=== PATIENT | male | born 1945 | race Caucasian/White ===

== ENCOUNTER → 2017-02-16 | Outpatient (REF) | payer OTHER ==
[2017-02-16 12:45] LABS: MEAN CORPUSCULAR HGB CONC 33.5 g/dl (32.0-36.5); MEAN CORPUSCULAR VOLUME 101.5 fl (80.0-96.0); RED CELL DISTRIBUTION WIDTH 13.4 % (11.5-14.5); WHITE BLOOD COUNT 7.6 K/mm3 (4.0-10.0)
[2017-02-16 13:12] LABS: ALBUMIN/GLOBULIN RATIO 1.14 (1.00-1.93); ALKALINE PHOSPHATASE 65 U/L (45-117); ALT/SGPT 30 U/L (12-78); ANION GAP 8 MEQ/L (8-16); AST/SGOT 16 U/L (15-37); BILIRUBIN,TOTAL 0.4 MG/DL (0.2-1.0); BLOOD UREA NITROGEN 22 MG/DL (7-18); CARBON DIOXIDE LEVEL 27 MEQ/L (21-32); CHLORIDE LEVEL 106 MEQ/L (98-107); CHOLESTEROL LEVEL 173 MG/DL (<200); GLOMERULAR FILTRATION RATE > 60.0 (>42); GLUCOSE, FASTING 103 MG/DL (83-110); POTASSIUM SERUM 4.8 MEQ/L (3.5-5.1); SODIUM LEVEL 141 MEQ/L (136-145); TOTAL PROTEIN 7.5 GM/DL (6.4-8.2); TRIGLYCERIDES LEVEL 132 MG/DL (<150)
== END ==
LOC: M SFHCADAM 08:59
PROVIDERS: ATTEND Physician Assistant
DX: F17.200 Nicotine dependence, unspecified, uncomplicated (principal); E78.4 Other hyperlipidemia; I10 Essential (primary) hypertension; Z12.5 Encounter for screening for malignant neoplasm of prostate
CPT/HCPCS: 80053; 80061; 85027; G0103

== ENCOUNTER → 2017-02-18 | Outpatient (REF) | payer OTHER | LOC: M SFHCADAM 09:34 | PROVIDERS: ATTEND Physician Assistant | DX: R35.0 Frequency of micturition (principal) | CPT/HCPCS: 81001; 87086; G0463 ==

== ENCOUNTER 2017-07-20 12:52 | Day surgery (SDC) | payer OTHER ==
[2017-07-20] MEDS: NS 1,000 ML IV (13:39)
[2017-07-20] MEDS ORDERED: LIDOCAINE 2% INJ 100 MG/5 ML SDV (FOR ANES.) As Ordered (14:43)
[2017-07-20] MEDS ORDERED: LIDOCAINE 2% MDV 20 ML VIAL As Ordered (14:43)
[2017-07-20] MEDS ORDERED: PROPOFOL 200 MG/20 ML VIAL As Ordered (14:43)
== END 2017-07-20 15:48 | disposition home or self-care (01) ==
LOC: M OPP 12:52
DX: Z12.11 Encounter for screening for malignant neoplasm of colon (principal); K64.0 First degree hemorrhoids; D12.0 Benign neoplasm of cecum; K63.5 Polyp of colon; K57.30 Diverticulosis of large intestine without perforation or abscess without bleeding; Z86.010 Personal history of colon polyps; I10 Essential (primary) hypertension; E78.00 Pure hypercholesterolemia, unspecified; M19.90 Unspecified osteoarthritis, unspecified site; N40.0 Benign prostatic hyperplasia without lower urinary tract symptoms; F17.210 Nicotine dependence, cigarettes, uncomplicated; Z79.82 Long term (current) use of aspirin; Z79.899 Other long term (current) drug therapy; Z86.69 Personal history of other diseases of the nervous system and sense organs
CPT/HCPCS: 45385

== ENCOUNTER → 2017-12-09 | Outpatient (REF) | payer OTHER ==
[2017-12-09 13:27] LABS: PSA SCREENING 3.66 NG/ML (< 4.0)
== END ==
LOC: M SFHCADAM 07:46
DX: R97.20 Elevated prostate specific antigen [PSA] (principal)
CPT/HCPCS: G0103

== ENCOUNTER → 2017-12-13 | Outpatient (REF) | payer OTHER ==
[2017-12-13 13:25] LABS: BASO # 0.1 10^3/uL (0.0-0.2); BASO % 0.6 % (0.0-1.0); EOS # 0.2 10^3/uL (0.0-0.50); EOS % 2.9 % (0.0-3.0); HEMATOCRIT 41.4 % (42.0-52.0); HEMOGLOBIN 13.7 g/dl (13.5-17.5); IMMATURE GRANULOCYTE % 0.4 % (0-3.0); LYMPH # 2.3 10^3/uL (1.5-4.5); MEAN CORPUSCULAR HEMOGLOBIN 32.5 pg (27.0-33.0); MEAN CORPUSCULAR HGB CONC 33.1 g/dl (32.0-36.5); MEAN CORPUSCULAR VOLUME 98.1 fl (80.0-96.0); MONO # 1.1 10^3/uL (0.0-0.8); MONO % 12.5 % (0.0-5.0); NEUTROPHILS # 4.8 10^3/uL (1.8-7.7); NEUTROPHILS % 56.6 % (36.0-66.0); PLATELET COUNT, AUTOMATED 260 10^3/uL (150-450); RED BLOOD COUNT 4.22 10^6/uL (4.30-6.10); RED CELL DISTRIBUTION WIDTH 14.2 % (11.5-14.5); WHITE BLOOD COUNT 8.4 10^3/uL (4.0-10.0)
[2017-12-13 13:42] LABS: ALBUMIN 3.7 GM/DL (3.2-5.2); ALKALINE PHOSPHATASE 74 U/L (45-117); ALT/SGPT 28 U/L (12-78); ANION GAP 8 MEQ/L (8-16); AST/SGOT 15 U/L (7-37); BILIRUBIN,TOTAL 0.4 MG/DL (0.2-1.0); BLOOD UREA NITROGEN 19 MG/DL (7-18); CALCIUM LEVEL 9.1 MG/DL (8.8-10.2); CARBON DIOXIDE LEVEL 26 MEQ/L (21-32); CHLORIDE LEVEL 105 MEQ/L (98-107); CHOLESTEROL LEVEL 173 MG/DL (<200); CREATININE FOR GFR 1.07 MG/DL (0.70-1.30); GLOMERULAR FILTRATION RATE > 60.0 (>42); GLUCOSE, FASTING 106 MG/DL (70-100); HDL CHOLESTEROL 49 MG/DL (>40); LDL CHOLESTEROL 104.8 MG/DL (<100); NON-HDL-C 124 MG/DL; POTASSIUM SERUM 4.9 MEQ/L (3.5-5.1); SODIUM LEVEL 139 MEQ/L (136-145); TOTAL PROTEIN 7.4 GM/DL (6.4-8.2); TRIGLYCERIDES LEVEL 96 MG/DL (<150)
[2017-12-13 13:48] LABS: FOLATE 12.4 NG/ML; VITAMIN B12 LEVEL 319 PG/ML
[2017-12-15 00:06] LABS: FREE KAPPA LIGHT CHAINS SERUM 44.5 mg/L (3.3-19.4); FREE LAMBDA LIGHT CHAINS SERUM 22.9 mg/L (5.7-26.3); KAPPA/LAMBDA RATIO SERUM 1.94 (0.26-1.65)
== END ==
LOC: M SFHCADAM 08:08
DX: D75.89 Other specified diseases of blood and blood-forming organs (principal); R23.8 Other skin changes; E78.4 Other hyperlipidemia
CPT/HCPCS: 82746

== ENCOUNTER → 2017-12-23 | Outpatient (REF) | payer OTHER ==
[2017-12-26 09:14] LABS: TOTAL PROTEIN 7.8 GM/DL (6.4-8.2)
[2017-12-26 11:22] LABS: ALBUMIN 4.32 GM/DL (3.29-5.55); ALBUMIN % 55.4 % (55.8-66.1); ALPHA-1-GLOBULIN % 4.7 % (2.9-4.9); ALPHA-1-GLOBULINS 0.37 GM/DL (0.17-0.41); ALPHA-2-GLOBULINS 0.92 GM/DL (0.42-0.99); ALPHA-2-GLOBULINS % 11.8 % (7.1-11.8); BETA-1-GLOBULINS 0.45 GM/DL (0.28-0.60); BETA-1-GLOBULINS % 5.8 % (4.7-7.2); BETA-2-GLOBULINS 0.44 GM/DL (0.19-0.55); BETA-2-GLOBULINS % 5.6 % (3.2-6.5); GAMMA GLOBULIN % 16.7 % (11.1-18.8)
[2017-12-26 14:11] LABS: FREE LAMBDA LIGHT CHAINS URINE 5.42 mg/L (0.24-6.66)
== END ==
LOC: M SFHCPLAZ 10:41
DX: D75.89 Other specified diseases of blood and blood-forming organs (principal)
CPT/HCPCS: 84165

== ENCOUNTER → 2018-03-14 | Outpatient (REF) | payer OTHER ==
[2018-03-14 11:27] LABS: SLIDE REVIEW Report; SOURCE PERIPHERAL SMEAR
[2018-03-14 12:09] LABS: REASON FOR REVIEW WBC/LEUKEMIA/BLAST
[2018-03-14 12:26] LABS: TOTAL PROTEIN 7.4 GM/DL (6.4-8.2)
[2018-03-15 16:20] LABS: ALBUMIN 4.03 GM/DL (3.29-5.55); ALBUMIN % 54.4 % (55.8-66.1)
[2018-03-15 16:21] LABS: ALPHA-1-GLOBULIN % 4.5 % (2.9-4.9); ALPHA-1-GLOBULINS 0.33 GM/DL (0.17-0.41); ALPHA-2-GLOBULINS 0.94 GM/DL (0.42-0.99); ALPHA-2-GLOBULINS % 12.7 % (7.1-11.8); BETA-1-GLOBULINS 0.41 GM/DL (0.28-0.60); BETA-1-GLOBULINS % 5.6 % (4.7-7.2); BETA-2-GLOBULINS 0.43 GM/DL (0.19-0.55); BETA-2-GLOBULINS % 5.8 % (3.2-6.5); GAMMA GLOBULINS 1.26 GM/DL (0.65-1.58)
[2018-03-16 00:07] LABS: FREE KAPPA LIGHT CHAINS SERUM 39.7 mg/L (3.3-19.4); KAPPA/LAMBDA RATIO SERUM 1.73 (0.26-1.65)
[2018-03-20 14:39] LABS: UPEP INTERPRETATION NO M-SPIKE NOTED; URINE VOLUME RANDOM ML
== END ==
LOC: M LAB REF 11:00
DX: R78.9 Finding of unspecified substance, not normally found in blood (principal)
CPT/HCPCS: 84165

== ENCOUNTER → 2018-03-28 | Outpatient (REF) | payer OTHER ==
[2018-03-28 15:16] LABS: IMMUNOGLOBULIN G 1260 MG/DL (681-1648); IMMUNOGLOBULIN M 52 MG/DL (40-230)
== END ==
LOC: M LAB REF 13:48
DX: D47.2 Monoclonal gammopathy (principal)
CPT/HCPCS: 82784

== ENCOUNTER → 2018-06-19 | Outpatient (CLI) | payer OTHER ==
[~2018-06-19] MED LIST: ASPI1TAB PO; ATEN25TA PO; B-1210009 PO; B-12100T2 PO; BISO5TAB5 PO; PRAV40TA2 PO
--- NOTE | 2018-06-20 03:47 | REP ---
Clinical: Monoclonal gammopathy Technique: Adult bone survey (AP/lateral views of the skull, cervical spine, thoracic spine, and lumbar spine along with AP views of the pelvis, bilateral humerus and femurs). Findings: 16 total views for interpretation demonstrate moderate degenerative changes of the cervical, thoracic, and lumbar spine as well as moderate symmetric degenerative changes involving the bilateral shoulders and hips. No evidence for acute fracture / compression injury to the spine. No obvious osseous abnormality suggesting malignancy or metastatic disease. Specifically, no lytic or blastic lesions and no evidence for cortical irregularity or periosteal reaction. Impression: Moderate degenerative changes. No evidence for osseous malignancy or metastatic disease. Electronically Signed by Shahriar Rahman MD 06/20/2018 03:38 A
== END ==
LOC: M RAD 11:05
PROVIDERS: ATTEND Internal Medicine Hematology & Oncology
DX: D47.2 Monoclonal gammopathy (principal)

== ENCOUNTER → 2018-08-09 | Outpatient (CLI) | payer MEDICARE ==
--- NOTE | 2018-08-09 21:46 | REP ---
Clinical: Lung screening. History smoking. Comparison: None Technique: Axial low-dose noncontrast images from the thoracic inlet to the upper abdomen using lung screening technique. Findings: The lung french demonstrates moderate subpleural bullous changes and mild bronchiectasis suggesting moderate emphysematous disease. No consolidation, significant nodule or mass lesion is appreciated. No pleural effusion/reaction or pneumothorax. Mediastinum demonstrates mild atherosclerotic changes of the coronary arteries without cardiomegaly. Impression: Lung-RADS category I-S. Moderate emphysematous changes. No nodule or suspicious abnormality. Electronically Signed by Shahriar Rahman MD 08/09/2018 09:37 P
== END ==
LOC: M RAD 08:25
PROVIDERS: ATTEND Internal Medicine Hematology & Oncology
DX: Z12.2 Encounter for screening for malignant neoplasm of respiratory organs (principal); Z87.891 Personal history of nicotine dependence; J43.9 Emphysema, unspecified

== ENCOUNTER → 2018-11-30 | Outpatient (REF) | payer MEDICARE ==
[~2018-11-30] MED LIST changes: -ASPI1TAB PO; +ASPI81TA26 PO
[2018-11-30 13:17] LABS: CHOLESTEROL RISK RATIO 4.425 (<5)
[2018-11-30 14:42] LABS: CREATININE, URINE 17.7 MG/DL; MAU/CREAT RATIO 33.8 MCG/MG (0.0-30.0)
== END ==
LOC: M SFHCADAM 10:14
PROVIDERS: ATTEND Physician Assistant
DX: E78.49 Other hyperlipidemia (principal); Z12.5 Encounter for screening for malignant neoplasm of prostate
CPT/HCPCS: 80061; 82043; G0103

== ENCOUNTER → 2018-11-30 | Outpatient (CLI) | payer MEDICARE ==
[2018-11-30 13:08] LABS: BASO # 0.1 10^3/uL (0.0-0.2); EOS # 0.2 10^3/uL (0.0-0.50); EOS % 1.7 % (0.0-3.0); HEMATOCRIT 43.8 % (42.0-52.0); HEMOGLOBIN 14.7 g/dl (13.5-17.5); LYMPH # 2.6 10^3/uL (1.5-4.5); LYMPH % 28.6 % (24.0-44.0); MEAN CORPUSCULAR HEMOGLOBIN 32.7 pg (27.0-33.0); MEAN CORPUSCULAR HGB CONC 33.6 g/dl (32.0-36.5); MEAN CORPUSCULAR VOLUME 97.6 fl (80.0-96.0); MONO # 0.9 10^3/uL (0.0-0.8); MONO % 9.8 % (0.0-5.0); NEUTROPHILS # 5.2 10^3/uL (1.8-7.7); NEUTROPHILS % 58.2 % (36.0-66.0); PLATELET COUNT, AUTOMATED 270 10^3/uL (150-450); RED BLOOD COUNT 4.49 10^6/uL (4.30-6.10)
[2018-11-30 13:26] LABS: ALT/SGPT 24 U/L (12-78); BILIRUBIN,TOTAL 0.4 MG/DL (0.2-1.0); BLOOD UREA NITROGEN 18 MG/DL (7-18); CALCIUM LEVEL 9.4 MG/DL (8.8-10.2); CARBON DIOXIDE LEVEL 28 MEQ/L (21-32); CHLORIDE LEVEL 106 MEQ/L (98-107); CREATININE FOR GFR 1.16 MG/DL (0.70-1.30); GLOMERULAR FILTRATION RATE > 60.0 (>42); GLUCOSE, FASTING 104 MG/DL (70-100); IMMUNOGLOBULIN G 1430 MG/DL (681-1648); IMMUNOGLOBULIN M 60.7 MG/DL (40-230); LDH LACTATE DEHYDROGENASE 181 U/L (87-241); POTASSIUM SERUM 4.5 MEQ/L (3.5-5.1); SODIUM LEVEL 138 MEQ/L (136-145); TOTAL PROTEIN 7.9 GM/DL (6.4-8.2)
[2018-12-05 00:07] LABS: BETA 2 MICROGLOBULIN 1.8 mg/L (0.6-2.4); FREE KAPPA LIGHT CHAINS SERUM 48.1 mg/L (3.3-19.4); FREE LAMBDA LIGHT CHAINS SERUM 21.8 mg/L (5.7-26.3); KAPPA/LAMBDA RATIO SERUM 2.21 (0.26-1.65)
== END ==
LOC: M LABDRWAD 10:17
PROVIDERS: ATTEND Internal Medicine Hematology & Oncology
DX: D47.2 Monoclonal gammopathy (principal); I10 Essential (primary) hypertension; Z12.5 Encounter for screening for malignant neoplasm of prostate
CPT/HCPCS: 36415; 80053; 80061; 82043; 82232; 82784; 83615; 83883; 85025; G0103; G0463

== ENCOUNTER → 2019-04-06 | Outpatient (CLI) | payer MEDICARE ==
[~2019-04-06] MED LIST changes: -BISO5TAB5 PO; +BISO5TAB9 PO
[2019-04-06 17:04] LABS: COLLAGEN ADP 113 SECONDS (56-103); COLLAGEN EPINEPHRINE > 300 SECONDS (74-162)
== END ==
LOC: M LAB 15:24
PROVIDERS: ATTEND Ophthalmology
DX: H02.032 Senile entropion of right lower eyelid (principal); H02.035 Senile entropion of left lower eyelid; H02.832 Dermatochalasis of right lower eyelid; H02.835 Dermatochalasis of left lower eyelid
CPT/HCPCS: 36415; 85576; G0463

== ENCOUNTER → 2019-04-14 | Outpatient (CLI) | payer MEDICARE ==
[2019-04-14 11:19] LABS: COLLAGEN EPINEPHRINE 210 SECONDS (74-162)
[2019-04-14 11:26] LABS: COLLAGEN ADP 94 SECONDS (56-103)
== END ==
LOC: M LAB 10:35
PROVIDERS: ATTEND Ophthalmology
DX: H02.032 Senile entropion of right lower eyelid (principal); H02.035 Senile entropion of left lower eyelid; H02.832 Dermatochalasis of right lower eyelid; H02.835 Dermatochalasis of left lower eyelid

== ENCOUNTER → 2020-08-09 | Outpatient (CLI) | payer MEDICARE ==
[~2020-08-09] MED LIST changes: +BISO5TAB14 PO; -BISO5TAB9 PO
== END ==
LOC: M LABSMTC 09:36
PROVIDERS: ATTEND Anesthesiology
DX: Z01.812 Encounter for preprocedural laboratory examination (principal); Z20.822 Contact with and (suspected) exposure to COVID-19

== ENCOUNTER 2020-08-14 09:11 | Day surgery (SDC) | payer MEDICARE ==
[~2020-08-14] VITALS: Ht 165.1 cm; Wt 72.6 kg
[~2020-08-14 09:11] MED LIST changes: +CEFUROXIME 1MG/0.1ML INTRACAMERAL INJ As Ordered ONE; +DUOVISC (0.50ML VISCOAT/0.55ML PROVISC) OPHTH KIT As Ordered ONE; +MIDAZOLAM INJ 2MG/2ML VIAL (J2250 PER 1MG) As Ordered ONE; +OFLOXACIN 0.3 % (OCUFLOX) OPTH SOL 5ML OD ONE; +PHENYLEPHRINE 2.5% OPHTH SOL 2ML OD ONE; +POVIDONE-IODINE 5% OPHTH PREP SOL 30ML As Ordered ONE; +PROPARACAINE 0.5% OPHTH SOL 15ML OD ONE; +TROPICAMIDE 1% OPHTH SOLN 2ML OD ONE; +fentaNYL 100 MCG/2 ML INJECTION (J3010) As Ordered ONE
--- OUTSIDE RECORDS SUMMARY | 2020-08-14 09:15 | CCD ---
Author Author Daniel Wells MD [facility] Organization Daniel Wells MD [facility] Address [address] [place] [id number] Phone Care Team Providers Care Dinkey Press Operator Name Role Phone Russell MOORE, Daniel IRVIN Unavailable [phone] Ingrid Roblero PP [phone] Reason for Referral No Reason for Referral Recorded Problems Includes: Active, inactive, and resolved Problems All Visits Onset Date - Time Resolved Date - Time Provider Co ndition Status Essential Hypertension 06/02/2020 - 12:00AM Daniel Hitchcock MD, FACS Active Conjunctivitis Chronic Allergic 02/13/2019 - 12:00AM Daniel Wells MD, FACS Active Dermatochalasis Right Upper Eyelid 01/25/2019 - 12:00AM Daniel Wells MD, FACS Active Dermatochalasis Right Lower Eyelid 01/25/2019 - 12:00AM Unknown - Unknown Daniel Wells MD, FACS Resolved Dermatochalasis Right Lower Eyelid 01/25/2019 - 12:00AM 06/02/20 20 - 8:07AM Daniel Wells MD, FACS Resolved Dermatochalasis Left Lower Eyelid 01/25/2019 - 12:00AM Unknown - Unknown Daniel Wells MD, FACS Resolved Dermatochalasis Left Lower Eyelid 01/25/2019 - 12:00AM 0 - 8:07AM Daniel Wells MD, FACS Resolved Dermatochalasis Left Upper Eyelid 01/25/2019 - 12:00AM Daniel Wells MD, FACS Active Retinopathy Hypertensive 01/25/2019 - 12:00AM Daniel Wells MD, FACS Active Ptosis of Eyelid 01/25/2019 - 12:00AM Daniel manzanares MD, FACS Active Tobacco Use 01/25/2019 - 12:00AM Daniel Wells MD, FACS Active Epidermal Inclusion Cyst 01/25/2019 - 12:00AM 06/02/2020 - 8:08A M Daniel Wells MD, FACS Resolved Entropion Senile 01/25/2019 - 12:00AM Unknown - Unknown Daniel Wells MD, FACS Resolved Entropion Senile 01/25/2019 - 12:00AM 06/02/2020 - 8:07AM Daniel Wells MD, FACS Resolved Entropion 01/25/2019 - 12:00AM 06/02/2020 - 8:07AM Daniel Melendrez MD, FACS Resolved Cataract Senile Nuclear 01/25/2019 - 12:00AM Daniel Wells MD, FACS Active Plan of Treatment Referrals To Diagnosis Referral to Dr. Grace Wells MD, FACS Age-r elated nuclear cataract, bilateral Future Appointments Date Time Location Provider Cataract Evaluation 07/03/2020 8:20AM Daniel Wells MD FROYLAN Edwards DO Findings Encounter Date Requested Referred to: Dr. Edwards 1 Year Follow-Up with Daniel Wells MD, FACS 06/02/2020 Ordered intervention and counseling on cessation of to bacco use, 3-10 minutes 1 Week Post OP with Daniel Wells MD, FACS 04/26/2019 Ordered intervention and counseling on cessation of to bacco use, 3-10 minutes 3 - 4 Week Follow-Up with Daniel Wells MD, FACS 02/19/2019 Ordered intervention and counseling on cessation of to bacco use, 3-10 minutes NEW PATIENT WITH REFERRAL with Daniel Wells MD, FACS 01/25/2019 Ordered intervention and counseling on c essation of tobacco use, greater than 10 minutes NEW PATIENT WITH REFERRAL with Daniel Wells MD, FACS 01/25/2019 Assessments Includes: Assessments for all patient encounters Findings Encounter Date Assessment of tobacco use 1 Year Follow-Up with Daniel Boss MD, FACS 06/02/2020 Chronic allergic conjunctivitis 1 Year Follow-Up with Daniel Wells MD, FACS 06/02/2020 Essential hypertension 1 Year Follow-Up with Daniel Bruno MD, FACS 06/02/2020 Hypertensive retinopathy 1 Year Follow-Up with Daniel Melendrez MD, FACS 06/02/2020 Nuclear senile cataract 1 Year Follow-Up with Daniel Mistry MD, FACS 06/02/2020 Senile entropion 1 Week Post OP with Daniel Wells MD, FACS 04/26/2019 Chronic allergic conjunctivitis 3 - 4 Week Follow-Up w ith Daniel Wells MD, FACS 02/19/2019 Dermatochalasis of the left lower eyelid 3 - 4 Week Fo llow-Up with Daniel Wells MD, FACS 02/19/2019 Dermatochalasis of the left upper eyelid 3 - 4 Week Fo llow-Up with Daniel Wells MD, FACS 02/19/2019 Dermatochalasis of the right lower eyelid 3 - 4 Week F ollow-Up with Daniel Wells MD, FACS 02/19/2019 Dermatochalasis of the right upper eyelid 3 - 4 Week F ollow-Up with Daniel Wells MD, FACS 02/19/2019 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 3 - 4 Week Follow- Up with Daniel Wells MD, FACS 02/19/2019 Acute atopic conjunctivitis NEW PATIENT WITH REFERRAL with Daniel Wells MD, FACS 01/25/2019 Chronic allergic conjunctivitis NEW PATIENT WITH REFER RAL with Daniel Bruno MD, FACS 01/25/2019 Dermatochalasis of the left lower eyelid NEW PATIENT W ITH REFERRAL with Daniel Wells MD, FACS 01/25/2019 Dermatochalasis of the left upper eyelid NEW PATIENT W ITH REFERRAL with Daniel Wells MD, FACS 01/25/2019 Dermatochalasis of the right lower eyelid NEW PATIENT WITH REFERRAL with Daniel Wells MD, FACS 01/25/2019 Dermatochalasis of the right upper eyelid NEW PATIENT WITH REFERRAL with Daniel Wells MD, FACS 01/25/2019 Epidermal inclusion cyst NEW PATIENT WITH REFERRAL wi Daniel Wells MD, FACS 01/25/2019 Essential hypertension NEW PATIENT WITH REFERRAL wi Daniel Wells MD, FACS 01/25/2019 Hypertensive retinopathy NEW PATIENT WITH REFERRAL wi Daniel Wells MD, FACS 01/25/2019 Nuclear senile cataract NEW PATIENT WITH REFERRAL [facility] Daniel Wells MD, BRANDEE 01/25/2019 Ptosis of eyelid NEW PATIENT WITH REFERRAL with Daniel Wells MD, FACS 01/25/2019 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 NEW PATIENT WITH REFERRAL with Daniel Wells MD, FACS 01/25/2019 Tobacco use NEW PATIENT WITH REFERRAL with Daniel Wells MD, FACS 01/25/2019 Instructions Instructions not supported for this document typeNo Instructions Recorded Medical Equipment - Implanted Devices Includes: Current and historical DevicesNo Medical Equipment Recorded Medications Includes: Current and historical Medications Current Medications (continue as prescribed) Atenolol 25MG Oral Tablet 01/25/2019 Provider: Diagnosis: Pravastatin Sodium 40MG Oral Tablet 01/25/2019 Prov ider: Diagnosis: Aspirin 81MG Oral Tablet Delayed Release 01/25/2019 Provider: Diagnosis: Vitamin B12 100MCG Oral Tablet 01/25/2019 Provider: Diagnosis: Past Medications on file Ciloxan 0.3% Ophthalmic Ointment 02/19/2019 - 06/02/2020 Pro vider: Daniel Wells MD [facility] Diagnosis: Senile entropion of left lower eyelid Day of surgery, apply thin bead to incis ions and sutures 3 times a day for 1 week Erythromycin 5MG/GM Ophthalmic Ointment 01/25/2019 - 019 Provider: Daniel Wells MD [facility] Diagnosis: Senile entropion of left lower eyelid apply thin bead to both lower eyelids at bedtime Medications Administered Includes: Administered Medications in patient's chartNo Administered Medications Recorded Vital Signs Includes: Vital Signs from 06/16/2019 through 06/16/2020No Vital Signs Recorded For Specified Dates Results Includes: Results from 06/16/2019 through 06/16/2020No Results Recorded For Specified Dates History of Present Illness History of Present Illness not supported for this document typeNo History of Present Illness Recorded Social History Description Last Updated Not using drugs 05/28/2019 Alcohol use moderately 02/19/2019 Current smoker 02/19/2019 Smoking status : Current everyday smoker 02/19/2019 Tobacco use 02/19/2019 Procedures and Surgical History Includes: Procedures from 06/16/2019 through 06/16/2020 Procedures Code Diagnosis Performing Provider Service Location Service Date Intermediate Eye Exam Established Patient [id number] Age-related nuclear cataract, bilateral, Other chronic allergic conjunctivitis, Hypertensive retinopathy, bilateral, Tobacco use Daniel Wells MD, FACS Daniel Wells MD [facility] 06/02/2020 Surgical History Last Updated History of repair of entropion of the ri ght lower eyelid Pentagonal wedge excision and orbiculectomy, blepharoplasty, and reinsertion of lower eyelid retractors by Dr. Wells 05/02/19 05/11/2019 Surgical / procedural history Pentagona l wedge excision and orbiculectomy, blepharoplasty, and reinsertion of lower eyelid retractors left lower eyelid 04/18/2019 by 04/26/2019 History of repair of entropion of the le ft lower eyelid Pentagonal wedge excision and orbiculectomy, blepharoplasty, and reinsertion of lower eyelid retractors by 04/18/2019 04/20/2019 Medical History Includes: Medical History in patient's chart Description Last Updated History of hyperlipidemia 06/16/2020 No recent change in medical history 05/28/2019 Currently wearing eyeglasses 02/19/2019 History of hypertension 02/19/2019 Reported medical history 02/19/2019 Family History Includes: Family History in patient's chart Description Last Updated Family medical history was unknown 05/28/2019 Review of Systems Review of Systems not supported for this document typeNo Review of Systems Recorded Mental Status Mental Status not supported for this document type Description Oriented to time, place, and person Functional Status Functional Status not supported for this document typeNo Functional Status Recorded Physical Exam Physical Exam not supported for this document typeNo Physical Exam Recorded Immunizations Includes: Immunizations in patient's chartNo Immunizations Recorded Allergies Includes: Active, inactive, and resolved AllergiesNo Known Allergies Encounters Includes: Encounters from 06/16/2019 through 06/16/2020 Encounter Provider Location Date Check-In Time Check-Out Time D iagnosis 1 Year Follow-Up Daniel Wells MD, FACS Daniel Chen [facility] 06/02/2020 7:47AM 8:14AM Cataract Senile Nucl ear, Conjunctivitis Chronic Allergic, Retinopathy Hypertensive, Assessment of Tobacco Use, Essential Hypertension Insurance Includes: Active Insurance Policies Plan Name Member ID Group # Subscriber Relationship Effective Da ryan 1 - [employer] (Medicare).-AUTHS NEEDED!!!! [id number] Yon Lowo Self Advance Directives Includes: Current Advance DirectivesNo Advance Directives Recorded Health Concerns Includes: Active Health ConcernsNo Active Health Concerns Recorded Goals Includes: Active GoalsNo Active Goals Recorded Interventions Includes: Interventions for active GoalsNo Interventions Recorded Evaluations & Outcomes Includes: Evaluations & Outcomes for active GoalsNo Outcomes Recorded
--- OUTSIDE RECORDS SUMMARY | 2020-08-14 09:15 | CCD ---
Author Author [facility] Organization [facility] Address Unknown Phone Unavailable Care Team Providers Care Snuff Maker Name Role Phone Ingrid Patel Unavailable PROBLEMS Type Condition ICD9-CM Code [id number] Code Onset Dates Condition S tatus SNOMED Code Notes Problem Prostate cancer screening V76.44 Active 359997 005 Problem Hyperlipidemia 272.4 Active 10164477 Problem Other hyperlipidemia E78.4 Active 42600831 Problem Monoclonal gammopathy D47.2 Active 890035893 Problem HTN (hypertension) 401.9 Active 59716916 Problem Current smoker F17.200 Active 02452755 Problem Macrocytosis without anemia D75.89 Active 2343 98811 Problem Essential (primary) hypertension I10 Active 17624410 ALLERGIES Allergen (clinical drug ingredient) Drug/Non Drug Allergy do cumented on EMR Reaction Allergy Type Onset Date Status lipitor, zocor muscle aching Non Drug Allergy A ctive dander on a deer swelling eyes Non Drug Allergy Active ENCOUNTERS from 1945 to 2020-06-30 Encounter Location Date Provider Diagnosis [address] [phone] Jun, Ingrid Patel IMMUNIZATIONS Vaccine Route Administration Date Status Influenza (18 yrs & older) Flublok IM Intramuscular May 04, 2019 Administered Influenza (18 yrs & older) Flublok IM Intramuscular Jun 14, 2018 Administered Pneumococcal 0.5mL (Prevnar 13) IM Intramuscular Jun 14, 2018 Administered Influenza (6mo & up) Fluzone Unknown Jul 08, 2015 Ref used SOCIAL HISTORY Tobacco Use: Social History Observation Description Date Details (start date - stop date) Current Smoker Sex Assigned At : Social History Observation Description Sex Assigned At Unknown Audit Question Answer Notes Total Score: 1 Interpretation: Alcohol Education Drug and Alcohol Question Answer Notes Total Score: 0 Interpretation: No problems reported Alcohol Screening: Question Answer Notes Did you have a drink containing alcohol in the past year? Ye s Points 1 Interpretation Negative How often did you have six or more drinks on one occas ion in the past year? Never (0 points) How many drinks did you have on a typica l day when you were drinking in the past year? 1 or 2 (0 points) How often did you have a drink containing alcohol in t he past year? Monthly or less (1 point) Tobacco Use: Question Answer Notes Are you a: current smoker Patient counseled on the dangers of tobacco use and urged to quit: 02/11/2016 How many cigarettes a day do you smoke? 6-10 Are you interested in quitting? Not ready to quit Counseled the patient on smoking effects, education provided 02/11/2016 REASON FOR REFERRAL No Information VITAL SIGNS No information MEDICATIONS Medication SIG (Take, Route, Frequency, Duration) Notes Start Da te End Date Status Vitamin B-12 ER 1000 MCG 1 tablet Orally Once a day for 30 day(s ) Dec, Active Pravastatin Sodium 40 MG TAKE ONE TABLET BY MOUTH YAJAIRA RY DAY Orally Daily for 90 days Active Aspir-81 81 MG 1 tablet Orally Once a day Active Atenolol 25 mg TAKE ONE TABLET BY MOUTH EVERY DAY Orally Daily for 90 days Active PROCEDURES No Information RESULTS No Results REASON FOR VISIT refill MEDICAL (GENERAL) HISTORY Type Description Date Medical History Hyperlipidemia Medical History HTN Medical History Tobacco abuse - smokes a pip e - Declines low dose Lung cancer screening Medical History Family history of Prostate C ancer - both sons diagnosed in their 40s, Also his father, brother's Medical History MGUS - Following with Oncology Medical History CT chest - Moderate Emphysematous change s Surgical History Colonoscopy - Tubular adenomatous polyp - Kaylie) 11/2009 Surgical History Tympanoplasy 2012 Surgical History carpel tunnel release 2009 Surgical History knee repair -ilana Surgical History colonoscopy - Tubular adenoma - Dr. Jyothi turner 07/2017 Hospitalization History none Goals Section No Information Health Concerns No Information MEDICAL EQUIPMENT No Information MENTAL STATUS No Information FUNCTIONAL STATUS No Information ASSESSMENTS No Information PLAN OF TREATMENT Medication Medication Name Sig Start Date Stop Date Atenolol 25 mg TAKE ONE TABLET BY MOUTH EVERY DAY Orally Daily for 90 days Pravastatin Sodium 40 MG TAKE ONE TABLET BY MOUTH YAJAIRA DAY Orally Daily for 90 days Next Appt Details Provider Name:Ingrid Patel, 2020-07 07:30:00 AM, [id number], [place], [phone], Insurance Providers Payer Name Payer Address Payer Phone Insured Name Patient Relati onship to Insured Coverage Start Date Coverage End Date [facility] [address] [address] [facility] [phone] ALPHONSE OLIVARES self
--- OUTSIDE RECORDS SUMMARY | 2020-08-14 09:15 | CCD ---
Author Author Daniel Wells MD [facility] Organization Daniel Wells MD [facility] Address [address] [place] [phone] Phone Care Team Providers Care Crm Business Analyst Name Role Phone Russell MOORE, Daniel IRVIN Unavailable [phone] Ingrid Roblero PP [phone] Reason for Referral No Reason for Referral [...] Nuclear senile cataract NEW PATIENT WITH REFERRAL [facility] Daniel Wells MD, BRANDEE 01/25/2019 Ptosis of [...] 02/19/2019 - 06/02/2020 Pro vider: Daniel Wells MD, [facility] Diagnosis: Senile entropion of left lower eyelid Day of surgery, apply thin bead to incis ions and sutures 3 times a day for 1 week Erythromycin 5MG/GM Ophthalmic Ointment 01/25/2019 - 019 Provider: Daniel Wells MD [facility] Diagnosis: Senile entropion of left lower eyelid [...] History Description Last Updated Not using drugs 04/26/2019 Alcohol use moderately 02/19/2019 Current smoker 02/19/2019 Smoking status : Current everyday smoker 02/19/2019 Tobacco use 02/19/2019 Procedures and Surgical History Includes: Procedures from 06/16/2019 through 06/16/2020 Procedures Code Diagnosis Performing Provider Service Location Service Date Intermediate Eye Exam Established Patient [id number] Age-related nuclear cataract, bilateral, Other chronic allergic conjunctivitis, Hypertensive retinopathy, bilateral, Tobacco use Daniel Wells MD, FACS Daniel Wells MD [facility] 06/02/2020 Surgical History Last Updated [...] chart Description Last Updated History of hyperlipidemia 09/25/2019 No recent change in medical history 04/26/2019 Currently wearing eyeglasses 02/19/2019 History of hypertension 02/19/2019 Reported medical history 02/19/2019 Family History Includes: Family History in patient's chart Description Last Updated Family medical history was unknown 04/26/2019 Review of Systems Review of Systems not [...] Follow-Up Daniel Wells MD, FACS Daniel Chen [facility] 06/02/2020 7:47AM 8:14AM Cataract Senile Nucl ear, Conjunctivitis Chronic Allergic, Retinopathy Hypertensive, Assessment of Tobacco Use, Essential Hypertension Insurance Includes: Active Insurance Policies Plan Name Member ID Group # Subscriber Relationship Effective Da ryan 1 - [employer] (Medicare).-AUTHS NEEDED!!!! [id number] Yon Lowo Self Advance Directives Includes: Current Advance DirectivesNo Advance Directives Recorded Health Concerns Includes: Active Health ConcernsNo Active Health Concerns Recorded Goals Includes: Active GoalsNo Active Goals Recorded Interventions Includes: Interventions for active GoalsNo Interventions Recorded Evaluations & Outcomes Includes: Evaluations & Outcomes for active GoalsNo Outcomes Recorded
--- OUTSIDE RECORDS SUMMARY | 2020-08-14 09:15 | CCD ---
Author Author [facility] Organization [facility] Address Unknown Phone Unavailable Care Team Providers Care Metal Hanger Name Role Phone Ingrid Patel Unavailable PROBLEMS Type Condition ICD9-CM Code RBL06-AD Code Onset Dates Condition S tatus W/U Status Risk SNOMED Code Notes Problem Prostate cancer screening V76.44 Active confirmed 613076803 Problem Hyperlipidemia 272.4 Active confirmed 08403 004 Problem Other hyperlipidemia E78.4 Active confirmed 86415034 Problem Monoclonal gammopathy D47.2 Active confirmed 202064469 Problem HTN (hypertension) 401.9 Active confirmed 3 1222477 Problem Current smoker F17.200 Active confirmed 7717 6002 Problem Macrocytosis without anemia D75.89 Active confirmed 454564892 Problem Essential (primary) hypertension I10 Active conf irmed 88184871 ALLERGIES Allergen (clinical drug ingredient) Drug/Non Drug Allergy do cumented on EMR Reaction Allergy Type Onset Date Status lipitor, zocor muscle aching Non Drug Allergy A ctive dander on a deer swelling eyes Non Drug Allergy Active ENCOUNTERS from 1945 to 2020-08-07 Encounter Location Date Provider Diagnosis [facility] [address] [place] [address] Jul, Miguel Patel Annual physical exam Z00.00 ; Encounter for immunization Z23 ; Essential (primary) hypertension I10 ; Current smoker F17.200 ; Monoclonal gammopathy D47.2 and Need for Streptococcus pneumoniae vaccination Z23 IMMUNIZATIONS Vaccine Route Administration Date Status Influenza (18 yrs & older) Flublok IM Intramuscular Jul 22, 2020 Administered Influenza (18 yrs & older) Flublok IM Intramuscular May 04, 2019 Administered Influenza (18 yrs & older) Flublok IM Intramuscular Jun 14, 2018 Administered Pneumococcal Adult 0.5mL (Pneumovax 23) IM Intramuscular Jul 22, 2020 Administered Pneumococcal 0.5mL (Prevnar 13) IM Intramuscular [...] of tobacco use and urged to quit: 07/22/2020 How many cigarettes a day do you smoke? 6-10 Are you interested in quitting? Not ready to quit Counseled the patient on smoking effects, education provided 07/22/2020 REASON FOR REFERRAL No Information VITAL SIGNS Weight 166.4 lbs Jul, Height 66 in Jul, BMI 26.85 kg/m2 Jul, Heart Rate 75 /min Jul, Respiratory Rate 18 /min Jul, Temperature 98.1 degrees Fahrenheit Jul, Oximetry 100 Jul, Blood pressure systolic 124 mm Hg Jul, Blood pressure diastolic 72 mm Hg Jul, MEDICATIONS Medication SIG (Take, Route, Frequency, Duration) Notes Start Da te End Date Status Pravastatin Sodium 40 MG TAKE ONE TABLET BY MOUTH YAJAIRA RY DAY Orally Daily for 90 days Active Vitamin B-12 ER 1000 MCG 1 tablet Orally Once a day for 30 day(s ) Dec, Not-Taking Atenolol 25 mg TAKE ONE TABLET BY MOUTH EVERY DAY Orally Daily for 90 days Active Aspir-81 81 MG 1 tablet Orally Once a day Active PROCEDURES from 1943 to 2020-08-07 Procedure Date Ordered Result Body Site Immunization: Flublok Quadrivalent (18 years & older) 0.5mL IM (Influenza) 2020-07-22 N/A Immunization: Pneumovax 23 0.5mL SQ (Pneumococcal) 2020-07-22 N/A RESULTS No Results REASON FOR VISIT overdue annual MEDICAL (GENERAL) HISTORY Type Description Date Medical History Hyperlipidemia Medical History HTN Medical History Tobacco abuse - smokes a pip e - Declines low dose Lung cancer screening Medical History Family history of Prostate C ancer - both sons diagnosed in their 40s, Also his father, brother's Medical History MGUS - Following with Oncology Medical History CT chest - Moderate Emphysematous change s Medical History PSA elevated - Declines Further testing or Urology Referral Medical History Left testicular hydrocele - Evaluated by Urology Surgical History Colonoscopy - Tubular adenomatous polyp - Kaylie) 11/2009 Surgical History Tympanoplasy 2012 Surgical History carpel tunnel release 2009 Surgical History knee repair -ilana Surgical History colonoscopy - Tubular adenoma - Dr. Jyothi turner 07/2017 Surgical History eyes lift 2019 Hospitalization History none Goals Section No Information Health Concerns No Information MEDICAL EQUIPMENT No Information MENTAL STATUS No Information FUNCTIONAL STATUS No Information ASSESSMENTS Encounter Date Diagnosis Assessment Notes Treatment Notes Treatm ent Clinical Notes Jul, Annual physical exam (ICD-10 - Z00.00) Jul, Encounter for immunization (ICD-10 - Z23) Jul, Essential (primary) hypertension (ICD-10 - I10) Jul, Current smoker (ICD-10 - F17.200) Jul, Monoclonal gammopathy (ICD-10 - D47.2) Jul, Need for Streptococcus pneumoniae vaccination (I CD-10 - Z23) PLAN OF TREATMENT Future Test Test Name Order Date CBC with Differential 20200722 Comprehensive Metabolic Profile (CMP) 20200722 Next Appt Details labs today, 1 year for MAW Reason: Insurance Providers Payer Name Payer Address Payer Phone Insured Name Patient Relati onship to Insured Coverage Start Date Coverage End Date [employer] [address] [address] [facility] [address] [phone] ALPHONSE OLIVARES self
--- OUTSIDE RECORDS SUMMARY | 2020-08-14 09:15 | CCD ---
Author Author [facility] Organization [facility] Address Unknown Phone Unavailable Care Team Providers Care Die Hardener Name Role Phone Socorro Bruno, Ayush Sanchez MD, FACS Unavailable Unavailable Quintanilla Bruno, Ayush Sanchez MD, FACS Unavailable Unavailable Quintanilla Bruno, Ayush Sanchez MD, FACS Unavailable Unavailable Quintanilla Bruno, Ayush Sanchez MD, FACS Unavailable Unavailable Quintanilla Bruno, Ayush Sanchez MD, FACS Unavailable Unavailable Quintanilla Bruno, Ayush Sanchez MD, FACS Unavailable Unavailable Quintanilla Bruno, Ayush Sanchez MD, FACS Unavailable Unavailable Quintanilla Bruno, Ayush Sanchez MD, FACS Unavailable Unavailable Quintanilla Bruno, Ayush Sanchez MD, FACS Unavailable Unavailable Quintanilla Bruno, Ayush Sanchez MD, FACS Unavailable Unavailable Quintanilla Bruno, Ayush Sanchez MD, FACS Unavailable Unavailable Quintanilla Bruno, Ayush Sanchez MD, FACS Unavailable Unavailable Quintanilla Bruno, Ayush Sanchez MD, FACS Unavailable Unavailable Quintanilla Bruno, Ayush Sanchez MD, FACS Unavailable Unavailable Quintanilla Bruno, Ayush Sanchez MD, FACS Unavailable Unavailable Quintanilla Bruno, Ayush Sanchez MD, FACS Unavailable Unavailable Quintanilla Bruno, Ayush Sanchez MD, FACS Unavailable Unavailable Quintanilla Bruno, Ayush Sanchez MD, FACS Unavailable Unavailable Quintanilla Bruno, Ayush Sanchez MD, FACS Unavailable Unavailable Quintanilla Bruno, Ayush Sanchez MD, FACS Unavailable Unavailable Quintanilla Bruno, Ayush Sanchez MD, FACS Unavailable Unavailable Quintanilla Bruno, Ayush Sanchez MD, FACS Unavailable Unavailable Quintanilla Bruno, Ayush Sanchez MD, FACS Unavailable Unavailable Quintanilla Bruno, Ayush Sanchez MD, FACS Unavailable Unavailable Quintanilla Bruno, Ayush Sanchez MD, FACS Unavailable Unavailable Quintanilla Bruno, Ayush Sanchez MD, FACS Unavailable Unavailable Quintanilla Bruno, Ayush Sanchez MD, FACS Unavailable Unavailable Quintanilla Bruno, Ayush Sanchez MD, FACS Unavailable Unavailable Quintanilla Bruno, Ayush Sanchez MD, FACS Unavailable Unavailable Socorro Bruno, Ayush Sanchez MD, FACS Unavailable Unavailable Socorro Bruno, Ayush Sanchez MD, FACS Unavailable Unavailable Socorro Bruno, Ayush Sanchez MD, FACS Unavailable Unavailable Socorro Bruno, Ayush Sanchez MD, FACS Unavailable Unavailable Socorro Bruno, Ayush Sanchez MD, FACS Unavailable Unavailable Re-disclosure Warning The records that you are about to access may contain information from federally-assisted alcohol or drug abuse programs. If such information is present, then the following federally mandated warning applies: This information has been disclosed to you from records protected by federal confidentiality rules (42 CFR part 2). The federal rules prohibit you from making any further disclosure of this information unless further disclosure is expressly permitted by the written consent of the person to whom it pertains or as otherwise permitted by 42 CFR part 2. A general authorization for the release of medical or other information is NOT sufficient for this purpose. The Federal rules restrict any use of the information to criminally investigate or prosecute any alcohol or drug abuse patient.The records that you are about to access may contain highly sensitive health information, the redisclosure of which is protected by Article 27-F of the [facility] Public Health law. If you continue you may have access to information: Regarding HIV / AIDS; Provided by facilities licensed or operated by the [facility] Office of Mental Health; or Provided by the [facility] Office for People With Developmental Disabilities. If such information is present, then the following [facility] mandated warning applies: This information has been disclosed to you from confidential records which are protected by state law. State law prohibits you from making any further disclosure of this information without the specific written consent of the person to whom it pertains, or as otherwise permitted by law. Any unauthorized further disclosure in violation of state law may result in a fine or chcf sentence or both. A general authorization for the release of medical or other information is NOT sufficient authorization for further disc losure. Allergies and Adverse Reactions Type Description Substance Reaction Status Data Source(s ) Allergy to substance No Known Allergies No known allergies (situation ) LUCAS (Daniel Bruno MD [facility]) Allergy to substance No Known Allergies No known allergies (situation ) LUCAS (Daniel Bruno MD [facility]) Allergy to substance No Known Allergies No known allergies (situation ) LUCAS (Daniel Bruno MD [facility]) Allergy to substance No Known Allergies No known allergies (situation ) LUCAS (Daniel Bruno MD [facility]) Allergy to substance No Known Allergies No known allergies (situation ) MARIVEL (Daniel Bruno MD [facility]) Family History Family Member Name Family Member Gender Family Member Status Date o f Status Description Data Source(s) Unknown Unknown Encounters Encounter Providers Location Date Indications Data Source(s ) Office Visit, Est Pt., Level 3 FC [address] [place] [address] 07/22/2020 12:00:00 AM EST eCW1 ([facility]) Unknown [address] [facility], [facility] [address] 06/15/2020 12:00:00 AM EST eCW1 ([facility]) Outpatient<td ID="encounterTypeDescripti onID0">1 Year Follow-Up</td><td>Daniel Wells MD, FACS</td><td>Daniel Wells MD [facility]</td><td>06/02/2020</td><td>7:47AM</td><td>8:14AM</td><td><content ID="encounterDiagnosisID0-0">Cataract Senile Nuclear</content>, <content ID="encounterDiagnosisID0-1">Conjunctivitis Chronic Allergic</content>, <content ID="encounterDiagnosisID0-2">Retinopathy Hypertensive</content>, <content ID="encounterDiagnosisID0-3">Assessment of Tobacco Use</content>, <content ID="encounterDiagnosisID0-4">Essential Hypertension</content></td> Attender: Daniel Bruno MD, FACS Daniel Wells MD [facility] 06/02/2020 07:47:00 AM EST - 06/02/2020 08:14:00 AM EST Essential HypertensionEssential Hyperten sionEssential HypertensionConjunctivitis Chronic AllergicConjunctivitis Chronic AllergicConjunctivitis Chronic AllergicAssessment of Tobacco UseRetinopathy Hyp ertensiveCataract Senile NuclearAssessment of Tobacco UseRetinopathy HypertensiveCataract Senile NuclearAssessment of Tobacco UseRetinopathy HypertensiveCataract Senile Nuclear MARIVEL (Daniel Bruno MD [facility]) Essential Hypertension Essential Hypertension Essential Hypertension Conjunctivitis Chronic Allergic Conjunctivitis Chronic Allergic Conjunctivitis Chronic Allergic Assessment of Tobacco Use Retinopathy Hypertensive Cataract Senile Nuclear Assessment of Tobacco Use Retinopathy Hypertensive Cataract Senile Nuclear Assessment of Tobacco Use Retinopathy Hypertensive Cataract Senile Nuclear [address] [address] 06/19/2019 12:00:00 AM EST eCW1 ([facility]) Outpatient Attender: Daniel Bruno MD, FACS 04/18/2019 11:53:00 AM EDT - 04/18/2019 02:55:00 PM [facility] Patient discharged. Immunizations Vaccine Date Status Description Data Source(s) pneumococcal polysaccharide PPV23 07/22/2020 08:52:00 AM EST comple marek eCW1 ([facility]) influenza, recombinant, quadrIvalent,injectable, prese rvative free 07/22/2020 07:46:00 AM EST completed eCW1 ([facility]) Medications Medication Brand Name Start Date Product Form Dose Route Admi nistrative Instructions Pharmacy Instructions Status Indications Reaction Description Data Source(s) 1 % 08/09/2020 12:00:00 AM EST drops,suspension 2 DAY OF SURGERY, REMOVE PATCH, INSTILL ONE DROP IN THE RIGHT EYE TWO TIMES A DAY DAY OF SURGERY, REMOVE PATCH, INSTILL ONE DROP IN THE RIGHT EYE TWO TIMES A DAY SOLD: 08/09/2020 [facility] 0.075 % 08/06/2020 12:00:00 AM EST drops 5 STARTING 3 DAYS BEFORE SURGERY, INSTILL ONE DROP IN THE RIGHT EYE TWO TIMES A DAY STARTING 3 DAYS BEFORE SURGERY, INSTILL ONE DROP IN THE RIGHT EYE TWO TIMES A DAY SOLD: 08/09/2020 [facility] moxifloxacin 5 MG/ML Ophthalmic Solution 0.5 % MOXIFLOXACIN HCL 08/05/2020 12:00:00 AM EST drops 3 STARTING 3 DAYS BEFORE SURGERY, INSTILL ONE DROP IN THE RIGHT EYE FOUR TIMES A DAY STARTING 3 DAYS BEFORE SURGERY, INSTILL ONE DROP IN THE RIGHT EYE FOUR TIMES A DAY SOLD: 08/09/2020 [facility] Atenolol 25 MG Oral Tablet ATENOLOL 06/16/2020 12:00:00 AM EST tablet 90 TAKE ONE TABLET BY MOUTH EVERY DAY TAKE ONE TABLET BY MOUTH EVERY DAY SOLD: 06/20/2020 [facility] 40 mg 06/16/2020 12:00:00 AM EST tablet 90 TAKE ONE TABLET BY MOUTH EVERY DAY TAKE ONE TABLET BY MOUTH EVERY DAY SOLD: 06/20/2020 [facility] 25 mg 12/04/2019 12:00:00 AM EDT tablet 90 TAKE ONE TABLET BY MOUTH EVERY DAY TAKE ONE TABLET BY MOUTH EVERY DAY SOLD: 03/14/2020 [facility] 40 mg 12/04/2019 12:00:00 AM EDT tablet 90 TAKE ONE TABLET BY MOUTH EVERY DAY TAKE ONE TABLET BY MOUTH EVERY DAY SOLD: 12/14/2019 [facility] 40 mg 12/04/2019 12:00:00 AM EDT tablet 90 TAKE ONE TABLET BY MOUTH EVERY DAY TAKE ONE TABLET BY MOUTH EVERY DAY SOLD: 03/14/2020 [facility] 25 mg 12/04/2019 12:00:00 AM EDT tablet 90 TAKE ONE TABLET BY MOUTH EVERY DAY TAKE ONE TABLET BY MOUTH EVERY DAY SOLD: 12/14/2019 [facility] 40 mg 06/06/2019 12:00:00 AM EST tablet 90 TAKE ONE TABLET BY MOUTH EVERY DAY TAKE ONE TABLET BY MOUTH EVERY DAY SOLD: 09/08/2019 [facility] 25 mg 06/06/2019 12:00:00 AM EST tablet 90 TAKE ONE TABLET BY MOUTH EVERY DAY TAKE ONE TABLET BY MOUTH EVERY DAY SOLD: 09/08/2019 [facility] Ciprofloxacin 0.003 MG/MG Ophthalmic Oin tment [Ciloxan] Ciloxan 0.3% Ophthalmic Ointment Ciloxan 0.3% Ophthalmic Ointment 02/19/2019 12:00:00 AM EDT aborted ciprofloxacin 0.003 MG/MG Ophtha lmic Ointment [Ciloxan] MARIVEL (Daniel Bruno MD [facility]) Insurance Providers Payer name Policy type / Coverage type Policy ID Covered republican ID Covered republican's relationship to ponce Policy Ponce Plan Information WELLCARE [id number] SP [id number] WELLCARE [id number] SP [id number] WELLCARE [id number] SP [id number] [facility] [id number] S [id number] [facility] ( O) [id number] [employer]SI-[employer] Maintenance Organization ( O) [id number] [employer] [id number] SP [id number] WELLCARE [id number] SP [id number] [employer] [id number] SP [id number] ANSI-Medicare Part B [id number] [employer]IONS [id number] SP [id number] Today's Option Medicare Commercial Self [employer] OPTION -O/P [id number] [employer] [id number] Problems, Conditions, and Diagnoses Code Display Name Description Problem Type Effective Dates Data Source(s) 401.9 Essential Hypertension Essential Hypertension Problem 06/02/2020 12:00:00 AM EST MARIVEL (Daniel Bruno MD [facility]) 401.9 Essential Hypertension Essential Hypertension Problem 06/02/2020 12:00:00 AM EST MARIVEL (Daniel Bruno MD [facility]) 401.9 Essential Hypertension Essential Hypertension Problem 06/02/2020 12:00:00 AM EST MARIVEL (Daniel Bruno MD [facility]) 372.05 Conjunctivitis Acute Atopic Conjunctivitis Acute Atopi c Problem 09/18/2019 12:00:00 AM EDT MARIVEL (Daniel Bruno MD [facility]) 372.05 Conjunctivitis Acute Atopic Conjunctivitis Acute Atopi c Problem 09/18/2019 12:00:00 AM EDT MARIVEL (Daniel Bruno MD [facility]) 706.2 Epidermal Inclusion Cyst Epidermal Inclusion Cyst Prob coleman 01/25/2019 12:00:00 AM EDT - 06/02/2020 12:00:00 AM EST MARIVEL (Daniel Bruno MD [facility]) [id number] Dermatochalasis Left Lower Eyelid Dermatochalasi s Left Lower Eyelid Problem 01/25/2019 12:00:00 AM EDT - 06/02/2020 12:00:00 AM ES T MARIVEL (Daniel Bruno MD [facility]) [id number] Dermatochalasis Right Lower Eyelid Dermatochalas is Right Lower Eyelid Problem 01/25/2019 12:00:00 AM EDT - 06/02/2020 12:00:00 AM ES T MARIVEL (Daniel Bruno MD [facility]) 374.01 Entropion Entropion Problem 01/25/2019 12:0 0:00 AM EDT - 06/02/2020 12:00:00 AM EST MARIVEL (Daniel Bruno MD [facility]) 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 019 12:00:00 AM EDT - 06/02/2020 12:00:00 AM EST MARIVEL (Daniel Bruno MD [facility]) 706.2 Epidermal Inclusion Cyst Epidermal Inclusion Cyst Prob coleman 01/25/2019 12:00:00 AM EDT - 06/02/2020 12:00:00 AM EST MARIVEL (Daniel Bruno MD [facility]) [id number] Dermatochalasis Left Lower Eyelid Dermatochalasi s Left Lower Eyelid Problem 01/25/2019 12:00:00 AM EDT - 06/02/2020 12:00:00 AM ES T MARIVEL (Daniel Bruno MD [facility]) [id number] Dermatochalasis Right Lower Eyelid Dermatochalas is Right Lower Eyelid Problem 01/25/2019 12:00:00 AM EDT - 06/02/2020 12:00:00 AM ES T MARIVEL (Daniel Bruno MD [facility]) 374.01 Entropion Entropion Problem 01/25/2019 12:0 0:00 AM EDT - 06/02/2020 12:00:00 AM EST MARIVEL (Daniel Bruno MD [facility]) 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 019 12:00:00 AM EDT - 06/02/2020 12:00:00 AM EST MARIVEL (Daniel Bruno MD [facility]) 706.2 Epidermal Inclusion Cyst Epidermal Inclusion Cyst Prob coleman 01/25/2019 12:00:00 AM EDT - 06/02/2020 12:00:00 AM EST MARIVEL (Daniel Bruno MD [facility]) [id number] Dermatochalasis Left Lower Eyelid Dermatochalasi s Left Lower Eyelid Problem 01/25/2019 12:00:00 AM EDT - 06/02/2020 12:00:00 AM ES T MARIVEL (Daniel Bruno MD [facility]) [id number] Dermatochalasis Right Lower Eyelid Dermatochalas is Right Lower Eyelid Problem 01/25/2019 12:00:00 AM EDT - 06/02/2020 12:00:00 AM ES T MARIVEL (Daniel Bruno MD [facility]) 374.01 Entropion Entropion Problem 01/25/2019 12:0 0:00 AM EDT - 06/02/2020 12:00:00 AM EST MARIVEL (Daniel Bruno MD [facility]) 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 019 12:00:00 AM EDT - 06/02/2020 12:00:00 AM EST MARIVEL (Daniel Bruno MD [facility]) Surgeries/Procedures Procedure Description Date Indications Data Source(s) HEPATITIS A VACCINE PEDIATRIC 3 DOSE SCHEDULE IM 07/22 12:00:00 AM EST eCW1 ([facility]) Immunization: Flublok Quadrivalent (18 years & older) 0.5mL IM (Influenza) 07/22/2020 12:00:00 AM EST eCW1 ([facility]) Correction of entropion of lower eyelid (procedure) Hi story of repair of entropion of the left lower eyelid Pentagonal wedge excision and orbiculectomy, blepharoplasty, and reinsertion of lower eyelid retractors by Dr. Wells 04/18/2019 06/02/2020 12:00:00 AM EST MARIVEL (Kris norma Bruno MD [facility]) Intermediate Eye Exam Established Patient Intermediate Eye Exam Established Patient 06/02/2020 12:00:00 AM EST MARIVEL (Kris Bruno MD [facility]) History of hyperlipidemia History of hyperlipidemia 09/25/2019 1 2:00:00 AM EDT MARIVEL (Daniel Bruno MD [facility]) History of hyperlipidemia History of hyperlipidemia 09/18/2019 1 2:00:00 AM EDT MARIVEL (Daniel Bruno MD [facility]) Results ID Date Data Source [id number] 08/09/2020 11:00:00 AM EST [facility] Name Value Range Interpretation Code Description Data Nidhi rce(s) Supporting Document(s) SARS coronavirus 2 RNA Not Detected [facility] [place] This lab was ordered by [facility] and reported by [facility]. Procedure Social History Code Duration Value Status Description Data Source(s ) Smoking 07/22/2020 12:00:00 AM EST Current Smoker completed Curre nt Smoker eCW1 ([facility]) Smoking 09/25/2019 08:25:24 AM EDT Smokes tobacco daily (findi ng) completed Smokes tobacco daily (finding) MARIVEL (Daniel Bruno MD [facility]) Smoking 09/18/2019 04:06:34 PM EDT Smokes tobacco daily (findi ng) completed Smokes tobacco daily (finding) MARIVEL (Daniel Bruno MD [facility]) Vital Signs ID Date Data Source UNK Name Value Range Interpretation Code Description Data Source(s) Diastolic blood pressure 72 mm[Hg] 72 mm[Hg] eCW1 ([facility]) Systolic blood pressure 124 mm[Hg] 124 mm[Hg] e CW1 ([facility]) Body temperature 98.1 [degF] 98.1 [degF] eCW1 ( [facility]) Respiratory rate 18 /min 18 /min eCW1 ([facility]) Heart rate 75 /min 75 /min eCW1 ([facility]) Body mass index (BMI) [Ratio] 26.85 kg/m2 26.85 kg/m2 eCW1 ([facility]) Body height 66 [in_i] 66 [in_i] eCW1 ([facility]) Body weight 166.4 [lb_av] 166.4 [lb_av] eCW1 ([facility]) Patient Treatment Plan of Care Planned Activity Planned Date Details Description Data Source (s) Ciprofloxacin 0.003 MG/MG Ophthalmic Ointment [Ciloxan ] 02/19/2019 12:00:00 AM EDT MARIVEL (Daniel Bruno MD [facility])
--- OUTSIDE RECORDS SUMMARY | 2020-08-14 09:15 | CCD ---
Author Author Daniel Wells MD [facility] Organization Daniel Wells MD [facility] Address [address] [place] [id number] Phone Care Team Providers Care Manager Audit Name Role Phone Russell MOORE, Daniel IRVIN Unavailable [phone] Ingrid Roblero PP [phone] Reason for Referral No Reason for Referral [...] Nuclear senile cataract [facility] Daniel Wells MD, BRANDEE 01/25/2019 Ptosis [...] - 06/02/2020 Pro vider: Daniel Wells MD, [facility] Diagnosis: Senile entropion of left lower eyelid Day of surgery, apply thin bead to incis ions and sutures 3 times a day for 1 week Erythromycin 5MG/GM Ophthalmic Ointment 01/25/2019 - 019 Provider: Daniel Wells MD [facility] Diagnosis: Senile entropion of left lower eyelid [...] History Description Last Updated Not using drugs 06/02/2020 Alcohol use moderately 02/19/2019 Current smoker 02/19/2019 Smoking status : Current everyday smoker 02/19/2019 Tobacco use 02/19/2019 Procedures and Surgical History Includes: Procedures from 06/16/2019 through 06/16/2020 Procedures Code Diagnosis Performing Provider Service Location Service Date Intermediate Eye Exam Established Patient [id number] Age-related nuclear cataract, bilateral, Other chronic allergic conjunctivitis, Hypertensive retinopathy, bilateral, Tobacco use Daniel Wells MD, FACS Daniel Wells MD [facility] 06/02/2020 Surgical History Last Updated History of repair of entropion of the le ft lower eyelid Pentagonal wedge excision and orbiculectomy, blepharoplasty, and reinsertion of lower eyelid retractors by Dr. Wells 04/18/2019 06/02/2020 History of repair of entropion of the ri ght lower eyelid Pentagonal wedge excision and orbiculectomy, blepharoplasty, and reinsertion of lower eyelid retractors by Dr. Wells 05/02/19 05/11/2019 Surgical / procedural history Pentagona l wedge excision and orbiculectomy, blepharoplasty, and reinsertion of lower eyelid retractors left lower eyelid 04/18/2019 by 04/26/2019 Medical History Includes: Medical History in patient's chart Description Last Updated History of hyperlipidemia 06/16/2020 No recent change in medical history 05/28/2019 Currently wearing eyeglasses 02/19/2019 History of hypertension 02/19/2019 Reported medical history 02/19/2019 Family History Includes: Family History in patient's chart Description Last Updated Family medical history was unknown 06/02/2020 Review of Systems Review of Systems not [...] Follow-Up Daniel Wells MD, FACS Daniel Chen [facility] 06/02/2020 7:47AM 8:14AM Cataract Senile Nucl ear, Conjunctivitis Chronic Allergic, Retinopathy Hypertensive, Assessment of Tobacco Use, Essential Hypertension Insurance Includes: Active Insurance Policies Plan Name Member ID Group # Subscriber Relationship Effective Da ryan 1 - [employer] (Medicare).-AUTHS NEEDED!!!! [id number] Yon Aguilareo Self Advance Directives Includes: Current Advance DirectivesNo Advance Directives Recorded Health Concerns Includes: Active Health ConcernsNo Active Health Concerns Recorded Goals Includes: Active GoalsNo Active Goals Recorded Interventions Includes: Interventions for active GoalsNo Interventions Recorded Evaluations & Outcomes Includes: Evaluations & Outcomes for active GoalsNo Outcomes Recorded
[2020-08-14] MEDS ORDERED: BSS IRR 500ML/OMIDRIA 4ML IRR BAG (OR ONLY) As Ordered ONE (09:57)
[2020-08-14 11:15] VITALS: BP 170/74
--- NOTE | 2020-08-15 09:31 | RO ---
OPERATIVE NOTE DATE OF OPERATION: 08/14/2020 PREOPERATIVE DIAGNOSIS: 1. Visually significant nuclear sclerotic cataract, right eye. POSTOPERATIVE DIAGNOSIS: 1. Visually significant nuclear sclerotic cataract, right eye. PROCEDURE: 1. Cataract extraction with use of phacoemulsification, and placement of intraocular lens, AU00T0, 20.5 D, right eye. SURGEON: Vishnu Edwards DO ANESTHESIA: Local (Omidria with MAC) COMPLICATIONS: None POSTOPERATIVE CONDITION: Stable INDICATIONS FOR SURGERY: 1. Blurred vision affecting patient's activities of daily living. DESCRIPTION OF PROCEDURE: The patient was seen in the preoperative area and properly identified. The correct operative eye was identified and marked. The patient received topical anesthetic, antibiotics, and topical dilating drops. The patient was then transferred to the operating room. The correct side was re-identified and a time-out was performed. The eye was prepped and draped in a sterile fashion. The eyelids were isolated with Tegaderm tape and the lids were held open with an adjustable speculum. A 1.0mm paracentesis incision was made. Omidria was then injected into the anterior chamber. Viscoelastic was then injected into the anterior chamber through the paracentesis. Using a 2.4mm sharp-tipped keratome, the anterior chamber was entered via a temporal clear cornea incision. A continuous curvilinear capsulorrhexis was created with Utrata forceps. Hydrodissection was performed with BSS on a blunt cannula until the nucleus was able to rotate freely. The crystalline lens was phacoemulsified and aspirated. Irrigation/aspiration was used to remove the cortical material Cohesive viscoelastic was placed into the capsular bag to deepen it. The implant was placed into the capsular bag and allowed to unfold. Placement was confirmed by visualizing the anterior capsulorrhexis. Irrigation/aspiration was used to remove the viscoelastic. The clear corneal incision was hydrated with BSS on a blunt cannula. The lens was well positioned. Intracameral antibiotic was injected into the anterior chamber. The incisions were then tested for leaks and found to be negative. The eye was then palpated for appropriate pressure and adjusted accordingly with BSS. The eyelid speculum was then carefully removed. A shield was placed over the eye. The patient tolerated the procedure well and was discharge to the recovery unit in a stable condition.
== END 2020-08-14 11:18 | disposition home or self-care (01) ==
LOC: M SDC 09:11
PROVIDERS: ATTEND Ophthalmology
DX: H25.11 Age-related nuclear cataract, right eye (principal); I10 Essential (primary) hypertension; E78.5 Hyperlipidemia, unspecified; F17.218 Nicotine dependence, cigarettes, with other nicotine-induced disorders; K21.9 Gastro-esophageal reflux disease without esophagitis; Z79.82 Long term (current) use of aspirin; Z79.899 Other long term (current) drug therapy; N40.0 Benign prostatic hyperplasia without lower urinary tract symptoms
CPT/HCPCS: 66984; J1097; J2250; J3010; V2632

== ENCOUNTER → 2020-08-16 | Outpatient (CLI) | payer MEDICARE ==
[~2020-08-16] MED LIST changes: -CEFUROXIME 1MG/0.1ML INTRACAMERAL INJ As Ordered ONE; -DUOVISC (0.50ML VISCOAT/0.55ML PROVISC) OPHTH KIT As Ordered ONE; -MIDAZOLAM INJ 2MG/2ML VIAL (J2250 PER 1MG) As Ordered ONE; -OFLOXACIN 0.3 % (OCUFLOX) OPTH SOL 5ML OD ONE; -PHENYLEPHRINE 2.5% OPHTH SOL 2ML OD ONE; -POVIDONE-IODINE 5% OPHTH PREP SOL 30ML As Ordered ONE; -PROPARACAINE 0.5% OPHTH SOL 15ML OD ONE; -TROPICAMIDE 1% OPHTH SOLN 2ML OD ONE; -fentaNYL 100 MCG/2 ML INJECTION (J3010) As Ordered ONE
== END ==
LOC: M LABSMTC 08:44
PROVIDERS: ATTEND Anesthesiology
DX: Z01.812 Encounter for preprocedural laboratory examination (principal); Z20.822 Contact with and (suspected) exposure to COVID-19

== ENCOUNTER 2020-08-21 08:25 | Day surgery (SDC) | payer MEDICARE ==
[~2020-08-21] VITALS: Ht 167.6 cm; Wt 74.8 kg
[~2020-08-21 08:25] MED LIST changes: +BSS IRR 500ML/OMIDRIA 4ML IRR BAG (OR ONLY) As Ordered ONE; +CEFUROXIME 1MG/0.1ML INTRACAMERAL INJ As Ordered ONE; +DUOVISC (0.50ML VISCOAT/0.55ML PROVISC) OPHTH KIT As Ordered ONE; +OFLOXACIN 0.3 % (OCUFLOX) OPTH SOL 5ML OS ONE; +PHENYLEPHRINE 2.5% OPHTH SOL 2ML OS ONE; +POVIDONE-IODINE 5% OPHTH PREP SOL 30ML As Ordered ONE; +PROPARACAINE 0.5% OPHTH SOL 15ML OS ONE; +TROPICAMIDE 1% OPHTH SOLN 2ML OS ONE
--- OUTSIDE RECORDS SUMMARY | 2020-08-21 08:29 | CCD ---
Author Author Daniel Wells MD [facility] Organization Daniel Wells MD [facility] Address [address] [place] [phone] Phone Care Team Providers Care Floorperson Name Role Phone Russell MOORE, BRANDEE, Daniel Zhang Unavailable [phone] Ingrid Roblero PP [phone] Reason for Referral No Reason for Referral Recorded Problems Includes: Active, inactive, and resolved Problems All Visits Onset Date - Time Resolved Date - Time Provider Co ndition Status Pseudophakia 08/15/2020 - 12:00AM Vishnu Edwards DO Active Amblyopia Refractive Right Eye 07/03/2020 - 12:00AM Lucho Edwards DO Active Dry Eye Syndrome 07/03/2020 - 12:00AM Vishnu dunn DO Active Vitreous Disorders Degeneration 07/03/2020 - 12:00AM Rohit Edwards DO Active Essential Hypertension 06/02/2020 - 12:00AM Daniel Hitchcock MD, FACS Active Conjunctivitis Chronic Allergic 02/13/2019 - 12:00AM Daniel Wells MD, FACS Active Dermatochalasis Left Lower Eyelid 01/25/2019 - 12:00AM [...] 8:07AM Daniel Wells MD, FACS Resolved Dermatochalasis Right Upper Eyelid 01/25/2019 - 12:00AM Daniel Wells MD, FACS Active Retinopathy Hypertensive 01/25/2019 - 12:00AM Daniel Wells MD, FACS Active Ptosis of Eyelid 01/25/2019 - 12:00AM Daniel manzanares MD, FACS Active Tobacco Use 01/25/2019 - 12:00AM Daniel Wells MD, FACS Active Epidermal Inclusion Cyst 01/25/2019 - 12:00AM 06/02/2020 - 8:08A M Daniel Wells MD, FACS Resolved Entropion 01/25/2019 - 12:00AM 06/02/2020 - 8:07AM Daniel Melendrez MD, FACS Resolved Entropion Senile 01/25/2019 - 12:00AM Unknown - Unknown Daniel Wells MD, FACS Resolved Entropion Senile 01/25/2019 - 12:00AM 06/02/2020 - 8:07AM Daniel Wells MD, FACS Resolved Cataract Senile Nuclear 01/25/2019 - 12:00AM Daniel Wells MD, FACS Active Plan of Treatment Pending Tests Order Diagnosis Results Due Ordering Provi margaret Testing Ordered - AScan A-Scan IOL Master Age-related nucl ear cataract, bilateral 09/01/20 Vishnu Edwards DO Referrals To Diagnosis Referral to Dr. Grace Wells MD, FACS Age-r elated nuclear cataract, bilateral Future Appointments Date Time Location Provider Extracapsular cataract removal w/IOL implant 08/21/2020 10: 20AM [facility] Vishnu Edwards DO 1 Week Post OP 08/29/2020 12:50PM Daniel Wells MD [facility] Rohit Edwards DO Findings Encounter Date Requested Referred [...] for all patient encounters Findings Encounter Date Nuclear senile cataract POST OP VISIT WITH PRE-OP with Ash Edwards DO 08/15/2020 Pseudophakia POST OP VISIT WITH PRE-OP with Vishnu reyez DO 08/15/2020 Nuclear senile cataract 1 WK PREOP FOR SURGERY with Vishnu Edwards DO 08/05/2020 Dry eye syndrome Cataract Evaluation with Vishnu moore DO 07/03/2020 Nuclear senile cataract Cataract Evaluation with Vishnu arizmendi DO 07/03/2020 Refractive amblyopia of the right eye Cataract Evaluat ion with Vishnu Edwards DO 07/03/2020 Vitreous degeneration Cataract Evaluation with Vishnu phillips DO 07/03/2020 Assessment of tobacco use 1 Year Follow-Up [...] conjunctivitis 3 - 4 Week Follow-Up w freida Wells MD, FACS 02/19/2019 Dermatochalasis of the left lower eyelid 3 - 4 Week Fo llow-Up with Daniel Wells MD, FACS 02/19/2019 Dermatochalasis of the left upper eyelid 3 - 4 Week Fo llow-Up with Daniel Wells MD, FACS 02/19/2019 Dermatochalasis of the right lower eyelid 3 - 4 Week F ollow-Up with Daniel Wells MD, [facility] 02/19/2019 Dermatochalasis of the right upper eyelid 3 - 4 Week F ollow-Up with Daniel Wells MD, [facility] 02/19/2019 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 3 - 4 Week Follow- Up with Daniel Wells MD, [facility] 02/19/2019 Acute atopic conjunctivitis NEW PATIENT WITH REFERRAL with Daniel Wells MD, [facility] 01/25/2019 Chronic allergic conjunctivitis NEW PATIENT WITH REFER RAL with Daniel Bruno MD, [facility] 01/25/2019 Dermatochalasis of the left lower eyelid NEW PATIENT W ITH REFERRAL with Daniel Wells MD, [facility] 01/25/2019 Dermatochalasis of the left upper eyelid NEW PATIENT W ITH REFERRAL with Daniel Wells MD, [facility] 01/25/2019 Dermatochalasis of the right lower eyelid NEW PATIENT WITH REFERRAL with Daniel Wells MD, [facility] 01/25/2019 Dermatochalasis of the right upper eyelid NEW PATIENT WITH REFERRAL with Daniel Wells MD, [facility] 01/25/2019 Epidermal inclusion cyst NEW PATIENT WITH REFERRAL [facility] Daniel Wells MD, [facility] 01/25/2019 Essential hypertension NEW PATIENT WITH REFERRAL [facility] Daniel Wells MD, [facility] 01/25/2019 Hypertensive retinopathy NEW PATIENT WITH REFERRAL [facility] Daniel Wells MD, [facility] 01/25/2019 Nuclear senile cataract NEW PATIENT WITH REFERRAL [facility] Daniel Wells MD, [facility] 01/25/2019 Ptosis of eyelid NEW PATIENT WITH REFERRAL with Daniel Wells MD, [facility] 01/25/2019 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 NEW PATIENT WITH REFERRAL with Daniel Wells MD, [facility] 01/25/2019 Tobacco use NEW PATIENT WITH REFERRAL with Daniel Wells MD, [facility] 01/25/2019 Instructions Instructions not supported for this document typeNo Instructions Recorded Medical Equipment - Implanted Devices Includes: Current and historical DevicesNo Medical Equipment Recorded Medications Includes: Current and historical Medications Current Medications (continue as prescribed) Moxifloxacin HCl 0.5% Ophthalmic Solution 08/05/2020 Provider: Vishnu Edwards DO Diagnosis: Age-related nuclear cataract, right eye Three days prior to surgery start one drop four times a day in the right eye BromSite 0.075% Ophthalmic Solution 08/05/2020 Prov ider: Vishnu Edwards DO Diagnosis: Age-related nuclear cataract, right eye Three days prior to surgery start one dr op two times a day in the right eye, RUN CARD. SEE PHARM NOTES Inveltys 1% Ophthalmic Suspension 08/05/2020 Provid er: Vishnu Edwards DO Diagnosis: Age-related nuclear cataract, right eye Day of surgery remove patch start one dr op two times a day in the right eye, RUN CARD. SEE PHARM NOTES Atenolol 25MG Oral Tablet 01/25/2019 Provider: Diagnosis: Pravastatin Sodium 40MG Oral Tablet 01/25/2019 Prov ider: Diagnosis: Aspirin 81MG Oral Tablet Delayed Release 01/25/2019 Provider: Diagnosis: Past Medications on file Ciloxan 0.3% Ophthalmic Ointment 02/19/2019 - 06/02/2020 Pro vider: Daniel Wells MD, FACS Diagnosis: Senile entropion of left lower eyelid Day of surgery, apply thin bead to incis ions and sutures 3 times a day for 1 week Vitamin B12 100MCG Oral Tablet 01/25/2019 - 07/03/2020 Provi margaret: Diagnosis: Erythromycin 5MG/GM Ophthalmic Ointment 01/25/2019 - 019 Provider: Daniel Wells MD, FACS Diagnosis: Senile entropion of left lower eyelid apply thin bead to both lower eyelids at bedtime Medications Administered Includes: Administered Medications in patient's chartNo Administered Medications Recorded Vital Signs Includes: Vital Signs from 08/15/2019 through 08/15/2020No Vital Signs Recorded For Specified Dates Results Includes: Results from 08/15/2019 through 08/15/2020No Results Recorded For Specified Dates History of Present Illness History of Present Illness not supported for this document typeNo History of Present Illness Recorded Social History Description Last Updated Not using drugs 08/15/2020 Alcohol use moderately 02/19/2019 Current smoker 02/19/2019 Smoking status : Current everyday smoker 02/19/2019 Tobacco use 02/19/2019 Procedures and Surgical History Includes: Procedures from 08/15/2019 through 08/15/2020 Procedures Code Diagnosis Performing Provider Service Location Service Date Ophthalmic biometry - IOL Master with IOL calculation (26, L T) 57836 Age-related nuclear cataract, left eye Vsihnu Edwards DO 08/15/2020 Ophthalmic biometry - IOL Master with IO L calculation (Right Side, WAIVER OF LIABILITY ON FILE (ABN)) 66816 Age-related nuclear cataract, right eye Vishnu Brownlee MD [facility] 08/05/2020 Intermediate Eye Exam Established Patient (Signi/Sep Eval. & Man.) [id number] Age- related nuclear cataract, right eye Vishnu Oliver [facility] 08/05/2020 Intermediate Eye Exam Established Patient [id number] Age-related nuclear cataract, bilateral Vishnu Brownlee MD [facility] 07/03/2020 Intermediate Eye Exam Established Patient [id number] Age-related nuclear cataract, bilateral, Other chronic allergic conjunctivitis, Hypertensive retinopathy, bilateral, Tobacco use Daniel Wells MD, FACS Daniel Wells MD [facility] 06/02/2020 Surgical History Last Updated History of extracapsular cataract extrac tion PCIOL OD by Dr. Edwards 08/14/2020 08/15/2020 Surgical / procedural history 07/03/2020 History of repair of entropion of the le ft lower eyelid Pentagonal wedge excision and orbiculectomy, blepharoplasty, and reinsertion of lower eyelid retractors by Dr. Wells 04/18/2019 06/02/2020 History of repair of entropion of the ri ght lower eyelid Pentagonal wedge excision and orbiculectomy, blepharoplasty, and reinsertion of lower eyelid retractors by Dr. Wells 05/02/19 05/11/2019 Medical History Includes: Medical History in patient's chart Description Last Updated Recent change in medical history 08/15/2020 History of hyperlipidemia 06/16/2020 Currently wearing eyeglasses 02/19/2019 History of hypertension 02/19/2019 Reported medical history 02/19/2019 Family History Includes: Family History in patient's chart Description Last Updated Family medical history was unknown 08/15/2020 Review of Systems Review of Systems not supported for this document typeNo Review of Systems Recorded Mental Status Mental Status not supported for this document type Description Oriented to time, place, and person Difficulty reading Functional Status Functional Status not supported for this document typeNo Functional Status Recorded Physical Exam Physical Exam not supported for this document typeNo Physical Exam Recorded Immunizations Includes: Immunizations in patient's chartNo Immunizations Recorded Allergies Includes: Active, inactive, and resolved AllergiesNo Known Allergies Encounters Includes: Encounters from 08/15/2019 through 08/15/2020 Encounter Provider Location Date Check-In Time Check-Out Time D iagnosis POST OP VISIT WITH PRE-OP Vishnu Brownlee MD [facility] 08/15/2020 12:51PM 1:53PM Cataract Senile Nucl ear, Pseudophakia Extracapsular cataract removal w/IOL implant Vishnu moore DO [facility] 08/14/2020 08/05/2020 10:20AM 7:11AM 1 WK PREOP FOR SURGERY [facility] 08/05/2020 12:39PM 1:55PM Cataract Senile Nuclear Cataract Evaluation Vishnu Brownlee MD [facility] 1 8:14AM 9:23AM Cataract Senile Nuclear, Dry Eye Syndrome, Vitreous Disorders Degeneration, Amblyopia Refractive Right Eye 1 Year Follow-Up Daniel Wells MD, FACS Daniel Chen [facility] 06/02/2020 7:47AM 8:14AM Cataract Senile Nucl ear, Conjunctivitis Chronic Allergic, Retinopathy Hypertensive, Assessment of Tobacco Use, Essential Hypertension Insurance Includes: Active Insurance Policies Plan Name Member ID Group # Subscriber Relationship Effective Da ryan 1 - [facility] (Medicare).-AUTHS NEEDED!!!! [id number] Yon Snyder Self Advance Directives Includes: Current Advance DirectivesNo Advance Directives Recorded Health Concerns Includes: Active Health ConcernsNo Active Health Concerns Recorded Goals Includes: Active GoalsNo Active Goals Recorded Interventions Includes: Interventions for active GoalsNo Interventions Recorded Evaluations & Outcomes Includes: Evaluations & Outcomes for active GoalsNo Outcomes Recorded
--- OUTSIDE RECORDS SUMMARY | 2020-08-21 08:29 | CCD ---
Author Author [facility] Organization [facility] Address Unknown Phone Unavailable Care Team Providers [facility] Name Role Phone Socorro Bruno, Ayush Sanchez [...] Bruno, Ayush Sanchez MD, FACS Unavailable Unavailable Leatha EDWARDSEW DO Unavailable [phone] STEPHY Ayush. PENNY DO Unavailable [phone] STEPHY Ayush. PENNY DO Unavailable [phone] STEPHY, Ayush. PENNY DO Unavailable [phone] STEPHY, Ayush. PENNY DO Unavailable [phone] STEPHY Ayush. PENNY DO Unavailable [phone] STEPHY Ayush. PENNY DO Unavailable [phone] STEPHY Ayush. PENNY DO Unavailable [phone] STEPHY Ayush. PENNY DO Unavailable [phone] STEPHY Ayush. PENNY DO Unavailable [phone] STEPHY Ayush. PENNY DO Unavailable [phone] STEPHY Ayush. PENNY DO Unavailable [phone] STEPHY, Ayush. PENNY DO Unavailable [phone] STEPHY, Ayush. PENNY DO Unavailable [phone] STEPHY, Ayush. PENNY DO Unavailable [phone] STEPHY Ayush. PENNY DO Unavailable [phone] STEPHY, Ayush. PENNY DO Unavailable [phone] STEPHY, Ayush. PENNY DO Unavailable [phone] STEPHY Ayush. PENNY DO Unavailable [phone] STEPHY Ayush. PENNY DO Unavailable [phone] STEPHY Ayush. PENNY DO Unavailable [phone] Re-disclosure Warning The records that you are [...] is protected by Article 27-F of the [facility] Public Health law. If you continue you may have access to information: Regarding HIV / AIDS; Provided by facilities licensed or operated by the [facility] Office of Mental Health; or Provided by the [facility] Office for People With Developmental Disabilities. If such information is present, then the following [facility] mandated warning applies: This information has been [...] law may result in a fine or [place] health [place] sentence or both. A general authorization for the release of medical or other information is NOT sufficient authorization for further disc losure. Allergies and Adverse Reactions Type Description Substance Reaction Status Data Source(s ) Allergy to substance No Known Allergies No known allergies (situation ) [facility] (Daniel Bruno MD [facility]) Allergy to substance No Known Allergies No known allergies (situation ) [facility] (Daniel Bruno MD [facility]) Allergy to substance No Known Allergies No known allergies (situation ) [facility] (Daniel Bruno MD [facility]) Allergy to substance No Known Allergies No known allergies (situation ) [facility] (Daniel Bruno MD [facility]) Allergy to substance No Known Allergies No known allergies (situation ) [facility] (Daniel Bruno MD [facility]) Allergy to substance No Known Allergies No known allergies (situation ) [facility] (Daniel Bruno MD [facility]) Allergy to substance No Known Allergies No known allergies (situation ) TIGER (Daniel Bruno MD [facility]) Family History Family Member Name Family Member Gender Family Member Status Date o f Status Description Data Source(s) Unknown Unknown Encounters Encounter Providers Location Date Indications Data Source(s ) Outpatient<td ID="encounterTypeDescripti onID0">POST OP VISIT WITH PRE- OP</td><td>Penny Edwards DO</td><td>Daniel Wells MD [facility]</td><td>08/15/2020</td><td>12:51PM</td><td>1:53PM</td><td><content ID="encounterDiagnosisID0-0">Cataract Senile Nuclear</content>, <content ID="encounterDiagnosisID0-1">Pseudophakia</content></td> Attender: PENNY Brownlee MD [facility] 08/15/2020 12:51:00 PM EST - 08/15/2020 01:53:00 PM EST PseudophakiaCataract Senile Nuclear [facility] (Daniel Bruno MD [facility]) Pseudophakia Cataract Senile Nuclear Outpatient<td ID="encounterTypeDescripti onID2">1 WK PREOP FOR SURGERY</td><td>Penny Edwards DO</td><td>Daniel Wells MD [facility]</td><td>08/05/2020</td><td>12:39PM</td><td>1:55PM</td><td><content ID="encounterDiagnosisID2-0">Cataract Senile Nuclear</content></td> Attender: PENNY Brownlee MD [facility] 08/05/2020 12:39:00 PM EST - 08/05/2020 01:55:00 PM EST Cataract Senile NuclearCataract Senile Nuclear [facility] (Daniel Bruno MD [facility]) Cataract Senile Nuclear Cataract Senile Nuclear Outpatient<td ID="encounterTypeDescripti onID1">Extracapsular cataract removal w/IOL implant</td><td>Penny Edwards DO</td><td>[facility]</td><td>08/14/2020</td><td>08/05/2020 10:20AM</td> <td>7:11AM</td><td></td> Attender: PENNY EDWARDS DO [facility] 08/05/2020 10:20:00 AM EST - 08/14/2020 07:11:00 AM EST [facility] (Daniel Bruno MD [facility]) Office Visit, Est Pt., Level 3 FC [address] [place] [address] 07/22/2020 12:00:00 AM EST eCW1 ([facility]) Outpatient<td ID="encounterTypeDescripti onID3">Cataract Evaluation</td><td>Penny Edwards DO</td><td>Daniel Wells MD [facility]</td><td>07/03/2020</td><td>8:14AM</td><td>9:23AM</td><td><content ID="encounterDiagnosisID3-0">Cataract Senile Nuclear</content>, <content ID="encounterDiagnosisID3-1">Dry Eye Syndrome</content>, <content ID="encounterDiagnosisID3-2">Vitreous Disorders Degeneration</content>, <content ID="encounterDiagnosisID3-3">Amblyopia Refractive Right Eye</content></td> Attender: PENNY Brownlee MD [facility] 07/03/2020 08:14:00 AM EST - 07/03/2020 09:23:00 AM EST Amblyopia Refractive Right EyeVitreous Disorders DegenerationDry Eye SyndromeAmblyopia Refractive Right EyeVitreous Disorders DegenerationDry Eye SyndromeCataract Senile NuclearCataract Senile Nuclear [facility] (Daniel Bruno MD [facility]) Amblyopia Refractive Right Eye Vitreous Disorders Degeneration Dry Eye Syndrome Amblyopia Refractive Right Eye Vitreous Disorders Degeneration Dry 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 Unknown [address] [facility], [facility] [address] 06/15/2020 12:00:00 AM EST eCW1 ([facility]) Outpatient<td ID="encounterTypeDescripti onID4">1 Year Follow-Up</td><td>Daniel Wells MD, FACS</td><td>Daniel Wells MD [facility]</td><td>06/02/2020</td><td>7:47AM</td><td>8:14AM</td><td><content ID="encounterDiagnosisID4-0">Cataract Senile Nuclear</content>, <content ID="encounterDiagnosisID4-1">Conjunctivitis Chronic Allergic</content>, <content ID="encounterDiagnosisID4-2">Retinopathy Hypertensive</content>, <content ID="encounterDiagnosisID4-3">Assessment of Tobacco Use</content>, <content ID="encounterDiagnosisID4-4">Essential Hypertension</content></td> Attender: Daniel Bruno MD, BRANDEE Wells MD [facility] 06/02/2020 07:47:00 AM EST - 06/02/2020 08:14:00 AM EST Essential HypertensionEssential Hyperten sionEssential HypertensionEssential HypertensionEssential HypertensionConjunctivitis Chronic AllergicConjunctivitis Chronic AllergicConjunctivitis Chronic Jerry rgicConjunctivitis Chronic AllergicConjunctivitis Chronic AllergicAssessment of Tobacco UseRetinopathy HypertensiveCataract Senile NuclearAssessment of Tobacco UseRetinopathy HypertensiveCataract Senile NuclearAssessment of Tobacco Use Retinopathy HypertensiveCataract Senile NuclearAssessment of Tobacco UseRetinopathy HypertensiveCataract Senile NuclearAssessment of Tobacco UseRetinopathy HypertensiveCataract Senile Nuclear [facility] (Daniel Bruno MD [facility]) Essential Hypertension Essential Hypertension Essential Hypertension Essential Hypertension Essential Hypertension 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 Immunizations Vaccine Date Status Description Data Source(s) pneumococcal polysaccharide PPV23 07/22/2020 08:52:00 AM EST comple marek eCW1 ([facility]) influenza, recombinant, quadrIvalent,injectable, prese rvative free 07/22/2020 07:46:00 AM EST completed eCW1 ([facility]) Medications Medication Brand Name Start Date Product [...] [facility] moxifloxacin 5 MG/ML Ophthalmic Solution Moxifloxacin HCl 0.5% Ophthalmic Solution Moxifloxacin HCl 0.5% Ophthalmic Solution 08/05/2020 12:00:00 AM EST active moxifloxacin 5 MG/ML Oph thalmic Solution [facility] (Daniel Bruno MD [facility]) BromSite 0.075% Ophthalmic Solution BromSite 0.075% Ophthalm ic Solution 08/05/2020 12:00:00 AM EST active bromfenac 0.75 MG/ML Ophthalmic Solution [Bromsite] [facility] (Daniel Bruno MD [facility]) Inveltys 1% Ophthalmic Suspension Inveltys 1% Ophthalmic Pati pension 08/05/2020 12:00:00 AM EST active loteprednol etabonate 10 MG/ML Ophthalmic Suspension [Inveltys] [facility] (Daniel Bruno MD [facility]) Atenolol 25 MG Oral Tablet ATENOLOL 06/16/2020 [...] MOUTH EVERY DAY SOLD: 12/14/2019 [facility] 25 mg 06/06/2019 12:00:00 AM EST tablet 90 TAKE ONE TABLET BY MOUTH EVERY DAY TAKE ONE TABLET BY MOUTH EVERY DAY SOLD: 09/08/2019 [facility] 40 mg 06/06/2019 12:00:00 AM EST tablet 90 TAKE ONE TABLET BY MOUTH EVERY DAY TAKE ONE TABLET BY MOUTH EVERY DAY SOLD: 09/08/2019 [facility] Ciprofloxacin 0.003 MG/MG Ophthalmic Oin tment [Ciloxan] Ciloxan 0.3% Ophthalmic Ointment Ciloxan 0.3% Ophthalmic Ointment 02/19/2019 12:00:00 AM EDT aborted ciprofloxacin 0.003 MG/MG Ophtha lmic Ointment [Ciloxan] [facility] (Daniel Bruno MD [facility]) Vitamin B 12 0.1 MG Oral Tablet Vitamin B12 100MCG Ora l Tablet Vitamin B12 100MCG Oral Tablet 01/25/2019 12:00:00 AM EDT 1 aborted vitamin B12 0.1 MG Oral Tablet [facility] (Daniel Bruno MD [facility]) Insurance Providers Payer name Policy type / Coverage type Policy ID Covered green party ID Covered green party's relationship to ponce Policy Ponce Plan Information [facility] [id number] SP [id number] WELLCARE [id number] SP [id number] WELLCARE [id number] SP [id number] WELLCARE HEALTH PLANS [id number] S [id number] [facility] ( O) [id number] ANSI-Health Maintenance Organization ( O) [id number] [employer] [id number] SP [id number] WELLCARE [id number] SP [id number] [employer] [id number] [place] [id number] ANSI-Medicare Part B [id number] [employer] [id number] SP [id number] Today's Option Medicare Commercial Self [employer] -O/P [id number] 18 0 [id number] [employer] [id number] 18 [id number] Problems, Conditions, and Diagnoses Code Display Name Description Problem Type Effective Dates Data Source(s) V43.1 Pseudophakia Pseudophakia Problem 08/15/2020 12:00:00 A M EST [facility] (Daniel Bruno MD [facility]) 379.21 Vitreous Disorders Degeneration Vitreous Disorders Deg eneration Problem 07/03/2020 12:00:00 AM EST [facility] (Daniel Bruno MD [facility]) 375.15 Dry Eye Syndrome Dry Eye Syndrome Problem 07/03/2020 12 :00:00 AM EST [facility] (Daniel Bruno MD [facility]) 368.03 Amblyopia Refractive Right Eye Amblyopia Refractive Ri ght Eye Problem 07/03/2020 12:00:00 AM EST [facility] (Daniel Bruno MD [facility]) 379.21 Vitreous Disorders Degeneration Vitreous Disorders Deg eneration Problem 07/03/2020 12:00:00 AM EST [facility] (Daniel Bruno MD [facility]) 375.15 Dry Eye Syndrome Dry Eye Syndrome Problem 07/03/2020 12 :00:00 AM EST [facility] (Daniel Bruno MD [facility]) 368.03 Amblyopia Refractive Right Eye Amblyopia Refractive Ri ght Eye Problem 07/03/2020 12:00:00 AM EST [facility] (Daniel Bruno MD [...] EDT [facility] (Daniel Bruno MD [facility]) 374.01 [...] EST [facility] (Daniel Bruno MD [facility]) [id number] Dermatochalasis Right Lower Eyelid Dermatochalas is Right Lower Eyelid Problem 01/25/2019 12:00:00 AM EDT - 06/02/2020 12:00:00 AM ES T [facility] (Daniel Bruno MD [facility]) [id number] Dermatochalasis Left Lower Eyelid Dermatochalasi s Left [...] EST [facility] (Daniel Bruno MD [facility]) [id number] Dermatochalasis Right Lower Eyelid Dermatochalas is Right Lower Eyelid Problem 01/25/2019 12:00:00 AM EDT - 06/02/2020 12:00:00 AM ES T [facility] (Daniel Bruno MD [facility]) [id number] Dermatochalasis Left Lower Eyelid Dermatochalasi s Left Lower Eyelid Problem 01/25/2019 12:00:00 AM EDT - 06/02/2020 12:00:00 AM ES T [facility] (Daniel Bruno MD [facility]) 706.2 Epidermal Inclusion Cyst Epidermal Inclusion Cyst Prob coleman 01/25/2019 12:00:00 AM EDT - 06/02/2020 12:00:00 AM EST [facility] (Daniel Bruno MD [facility]) [id number] Dermatochalasis Left Lower Eyelid Dermatochalasi s Left Lower Eyelid Problem 01/25/2019 12:00:00 AM EDT - 06/02/2020 12:00:00 AM ES T [facility] (Daniel Bruno MD [facility]) [id number] Dermatochalasis Right Lower Eyelid Dermatochalas is Right [...] EST [facility] (Daniel Bruno MD [facility]) 5198269 Dermatochalasis Left Lower Eyelid Dermatochalasi s Left Lower Eyelid Problem 01/25/2019 12:00:00 AM EDT - 06/02/2020 12:00:00 AM ES T [facility] (Daniel Bruno MD [facility]) [id number] Dermatochalasis Right Lower Eyelid Dermatochalas is Right [...] EST [facility] (Daniel Bruno MD [facility]) 7678237 Dermatochalasis Left Lower Eyelid Dermatochalasi s Left Lower Eyelid Problem 01/25/2019 12:00:00 AM EDT - 06/02/2020 12:00:00 AM ES T [facility] (Daniel Bruno MD [facility]) [id number] Dermatochalasis Right Lower Eyelid Dermatochalas is Right [...] Surgeries/Procedures Procedure Description Date Indications Data Source(s) Extracapsular extraction of lens (procedure) History o f extracapsular cataract extraction PCIOL OD by Dr. Edwards 08/14/2020 08/15/2020 12:00:00 AM EST [facility] (Daniel Bruno MD [facility]) OPH BMTRY PRTL COHER INTRFRMTRY IO LENS PWR JOSUÉ Ophtha lmic biometry - IOL Master with IOL calculation (26, LT) 08/15/2020 12:00:00 AM EST GR EENWAY (Daniel Bruno MD [facility]) Intermediate Eye Exam Established Patient (Signi/Sep E lavonne. & Man.) Intermediate Eye Exam Established Patient (Signi/Sep Eval. & Man.) 08/05/2020 12:00:00 AM EST [facility] (Daniel Bruno MD [facility]) OPH BMTRY PRTL COHER INTRFRMTRY IO LENS PWR JOSUÉ Ophtha lmic biometry - IOL Master with IOL calculation (Right Side, WAIVER OF LIABILITY ON FILE (ABN)) 08/05/2020 12:00:00 AM EST [facility] (Daniel Bruno MD [facility]) HEPATITIS A VACCINE PEDIATRIC 3 DOSE SCHEDULE IM 07/22 12:00:00 AM EST eCW1 ([facility]) Immunization: Flublok Quadrivalent (18 years & older) 0.5mL IM (Influenza) 07/22/2020 12:00:00 AM EST eCW1 ([facility]) Surgical / procedural history Surgical / procedural history 07/03/2020 12:00:00 AM EST [facility] (Daniel Bruno MD [facility]) Intermediate Eye Exam Established Patient Intermediate Eye Exam Established Patient 07/03/2020 12:00:00 AM EST [facility] (Kris Bruno MD [facility]) Correction of entropion of lower eyelid (procedure) Hi story of repair of entropion of the left lower eyelid Pentagonal wedge excision and orbiculectomy, blepharoplasty, and reinsertion of lower eyelid retractors by Dr. Wells 04/18/2019 06/02/2020 12:00:00 AM EST [facility] (Kris norma Bruno MD [facility]) Intermediate Eye Exam Established Patient Intermediate Eye Exam Established Patient 06/02/2020 12:00:00 AM EST [facility] (Kris id Ayush Bruno MD [facility]) History of hyperlipidemia History of hyperlipidemia 09/25/2019 1 2:00:00 AM EDT [facility] (Daniel Bruno MD [facility]) History of hyperlipidemia History of hyperlipidemia 09/18/2019 1 2:00:00 AM EDT [facility] (Daniel Bruno MD [facility]) Results ID Date Data Source [id number] 08/16/2020 09:00:00 AM EST [facility] Name Value Range Interpretation Code Description Data Nidhi rce(s) Supporting Document(s) SARS coronavirus 2 RNA Not Detected [facility] [place] This lab was ordered by [facility] and reported by [facility]. ID Date Data Source [id number] 08/09/2020 11:00:00 AM EST [facility] Name Value Range Interpretation Code Description Data Nidhi rce(s) Supporting Document(s) SARS coronavirus 2 RNA Not Detected [facility] [place] This lab was ordered by [facility] and reported by [facility]. Procedure Social History Code Duration Value Status Description Data Source(s ) Smoking 07/22/2020 12:00:00 AM EST Current Smoker completed Curre nt Smoker eCW1 ([facility]) Smoking 09/25/2019 08:25:24 AM EDT Smokes tobacco daily (findi ng) completed Smokes tobacco daily (finding) [facility] (Daniel Bruno MD [facility]) Smoking 09/18/2019 04:06:34 PM EDT Smokes tobacco daily (findi ng) completed Smokes tobacco daily (finding) [facility]IGER (Daniel Bruno MD [facility]) Vital Signs ID Date Data Source UNK Name Value Range Interpretation Code Description Data Source(s) Diastolic blood pressure 72 mm[Hg] 72 mm[Hg] eCW1 ([facility]) Systolic blood pressure 124 mm[Hg] 124 mm[Hg] e CW1 ([facility]) Body temperature 98.1 [degF] 98.1 [degF] eCW1 ( [facility]) Respiratory rate 18 /min 18 /min eCW1 ([facility]) Heart rate 75 /min 75 /min eCW1 ([facility]) Body mass index (BMI) [Ratio] 26.85 kg/m2 26.85 kg/m2 eCW1 ([facility]) Body height 66 [in_i] 66 [in_i] eCW1 ([facility]) Body weight 166.4 [lb_av] 166.4 [lb_av] [facility]CW[facility] Patient Treatment Plan of Care Planned Activity Planned Date Details Description Data Source (s) Inveltys 1% Ophthalmic Suspension 08/05/2020 12:00:00 AM EST [facility] (Daniel Bruno MD [facility]) BromSite 0.075% Ophthalmic Solution 08/05/2020 12:00:00 AM EST AM[facility] (Daniel Bruno MD [facility]) moxifloxacin 5 MG/ML Ophthalmic Solution 08/05/2020 12:00:00 AM EST [facility] (Daniel Bruno MD [facility]) Ciprofloxacin 0.003 MG/MG Ophthalmic Ointment [Ciloxan ] 02/19/2019 12:00:00 AM EDT [facility] (Daniel Bruno MD [facility])
--- OUTSIDE RECORDS SUMMARY | 2020-08-21 08:29 | CCD ---
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 Name Role Phone Russell MOORE, Daniel IRVIN Unavailable [phone] Ingrid Roblero PP [phone] Reason for Referral No Reason for Referral Recorded Problems Includes: Active, inactive, and resolved Problems All Visits Onset Date - Time Resolved Date - Time Provider Co ndition Status Amblyopia Refractive Right Eye 07/03/2020 - 12:00AM Lucho Edwards DO Active Dry Eye Syndrome 07/03/2020 - 12:00AM Vishnu dunn DO Active Vitreous Disorders Degeneration 07/03/2020 - 12:00AM Rohit Edwards DO Active Essential Hypertension 06/02/2020 - 12:00AM Daniel Hitchcock MD, FACS Active Conjunctivitis Chronic Allergic 02/13/2019 - 12:00AM Daniel Wells MD, FACS Active Dermatochalasis Left Upper Eyelid 01/25/2019 - 12:00AM [...] bilateral Future Appointments Date Time Location Provider POST OP VISIT WITH PRE-OP 08/15/2020 12:50PM Daniel matos MD [facility] Vishnu Edwards DO Extracapsular cataract removal w/IOL implant 08/21/2020 10: 20AM [facility] Vishnu Edwards DO 1 Week Post OP 08/29/2020 12:50PM Daniel Wells MD [facility] Rohit Edwards DO Findings Encounter Date [...] encounters Findings Encounter Date Nuclear senile cataract 1 WK PREOP FOR SURGERY with Vishnu Edwards DO 08/05/2020 Dry eye syndrome Cataract Evaluation with Vishnu Diehl in [place] 07/03/2020 Nuclear senile cataract Cataract Evaluation [...] Week F ollow-Up with Daniel Wells MD, [facility] 02/19/2019 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 3 - 4 Week Follow- Up with Daniel Wells MD, [facility] 02/19/2019 Acute atopic conjunctivitis NEW PATIENT WITH REFERRAL with Daniel Wells MD, [facility] 01/25/2019 Chronic allergic conjunctivitis NEW PATIENT WITH REFER RAL with Daniel Bruno MD, [facility] 01/25/2019 Dermatochalasis of the left lower eyelid NEW PATIENT W ITH REFERRAL with Daniel Wells MD, [facility] 01/25/2019 Dermatochalasis of the left upper eyelid NEW PATIENT W ITH REFERRAL with Daniel Wells MD, [facility] 01/25/2019 Dermatochalasis of the right lower eyelid NEW PATIENT WITH REFERRAL with Daniel Wells MD, [facility] 01/25/2019 Dermatochalasis of the right upper eyelid NEW PATIENT WITH REFERRAL with Daniel Wells MD, [facility] 01/25/2019 Epidermal inclusion cyst NEW PATIENT WITH REFERRAL [facility] Daniel Wells MD, [facility] 01/25/2019 Essential hypertension NEW PATIENT WITH REFERRAL [facility] Daniel Wells MD, [facility] 01/25/2019 Hypertensive retinopathy NEW PATIENT WITH REFERRAL [facility] Daniel Wells MD, [facility] 01/25/2019 Nuclear senile cataract NEW PATIENT WITH REFERRAL [facility] Daniel Wells MD, [facility] 01/25/2019 Ptosis of eyelid NEW PATIENT WITH REFERRAL with Daniel Wells MD, [facility] 01/25/2019 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 NEW PATIENT WITH REFERRAL with Daniel Wells MD, [facility] 01/25/2019 Tobacco use NEW PATIENT WITH REFERRAL with Daniel Wells MD, [facility] 01/25/2019 Instructions Instructions not supported for [...] of surgery remove patch start one dr george two times a day in the right [...] Recorded Vital Signs Includes: Vital Signs from 08/14/2019 through 08/14/2020No Vital Signs Recorded For Specified Dates Results Includes: Results from 08/14/2019 through 08/14/2020No Results Recorded For Specified Dates History of Present Illness History of Present Illness not supported for this document typeNo History of Present Illness Recorded Social History Description Last Updated Not using drugs 08/05/2020 Alcohol use moderately 02/19/2019 Current smoker 02/19/2019 Smoking status : Current everyday smoker 02/19/2019 Tobacco use 02/19/2019 Procedures and Surgical History Includes: Procedures from 08/14/2019 through 08/14/2020 Procedures Code Diagnosis Performing Provider Service Location Service Date Ophthalmic biometry - IOL Master with IO L calculation (Right Side, WAIVER OF LIABILITY ON FILE (ABN)) 49194 Age-related nuclear cataract, right eye Vishnu Brownlee MD [facility] 08/05/2020 Intermediate Eye Exam Established Patient (Signi/Sep Eval. & Man.) [id number] Age- related nuclear cataract, right eye Vishnu Olievr [facility] 08/05/2020 Intermediate Eye Exam Established Patient [id number] Age-related nuclear cataract, bilateral Vishnu Brownlee MD [facility] 07/03/2020 Intermediate Eye Exam Established Patient [id number] Age-related nuclear cataract, bilateral, Other chronic allergic conjunctivitis, Hypertensive retinopathy, bilateral, Tobacco use Daniel Wells MD, [facility] Daniel Wells MD [facility] 06/02/2020 Surgical History Last Updated Surgical / procedural history 07/03/2020 History of [...] Last Updated Family medical history was unknown 08/05/2020 Review of Systems Review of Systems not supported for this document typeNo Review of Systems Recorded Mental Status Mental Status not supported for this document typeNo Mental Status Recorded Functional Status Functional Status not supported for this document typeNo Functional Status Recorded Physical Exam Physical Exam not supported for this document typeNo Physical Exam Recorded Immunizations Includes: Immunizations in patient's chartNo Immunizations Recorded Allergies Includes: Active, inactive, and resolved AllergiesNo Known Allergies Encounters Includes: Encounters from 08/14/2019 through 08/14/2020 Encounter Provider Location Date Check-In Time Check-Out Time D iagnosis Extracapsular cataract removal w/IOL implant Vishnu Diehl in [facility] 08/14/2020 08/05/2020 10:20AM 7:11AM 1 WK PREOP FOR SURGERY Vishnu Brownlee MD [facility] 08/05/2020 12:39PM 1:55PM Cataract Senile Nuclear Cataract Evaluation Vishnu Brownlee MD [facility] 1 8:14AM 9:23AM Cataract Senile Nuclear, Dry Eye Syndrome, Vitreous Disorders Degeneration, Amblyopia Refractive Right Eye 1 Year Follow-Up Daniel Wells MD, FACS Daniel Chen [facility] 06/02/2020 7:47AM 8:14AM Cataract Senile Nucl ear, Conjunctivitis Chronic Allergic, Retinopathy Hypertensive, Assessment of Tobacco Use, Essential Hypertension Insurance Includes: Active Insurance Policies Plan Name Member ID Group # Subscriber Relationship Effective Da ryan 1 - [employer] (Medicare).-AUTHS NEEDED!!!! [id number] Yon s S Jareo Self Advance Directives Includes: Current Advance DirectivesNo Advance Directives Recorded Health Concerns Includes: Active Health ConcernsNo Active Health Concerns Recorded Goals Includes: Active GoalsNo Active Goals Recorded Interventions Includes: Interventions for active GoalsNo Interventions Recorded Evaluations & Outcomes Includes: Evaluations & Outcomes for active GoalsNo Outcomes Recorded
[2020-08-21] MEDS ORDERED: fentaNYL 100 MCG/2 ML INJECTION (J3010) As Ordered ONE (08:35)
[2020-08-21] MEDS ORDERED: MIDAZOLAM INJ 2MG/2ML VIAL (J2250 PER 1MG) As Ordered ONE (08:35)
[2020-08-21 11:25] VITALS: BP 173/75
--- NOTE | 2020-08-22 09:56 | RO ---
OPERATIVE NOTE DATE OF OPERATION: 08/21/2020 PREOPERATIVE DIAGNOSIS: 1. Visually significant nuclear sclerotic cataract, left eye. POSTOPERATIVE DIAGNOSIS: 1. Visually significant nuclear sclerotic cataract, left eye. PROCEDURE: 1. Cataract extraction with use of phacoemulsification, and placement of intraocular lens, AU00T0, 19.5 D, left eye. SURGEON: Vishnu Edwards DO ANESTHESIA: Local (Omidria with MAC) COMPLICATIONS: None POSTOPERATIVE CONDITION: Stable INDICATIONS FOR SURGERY: 1. Blurred vision affecting patient's activities of daily living. DESCRIPTION OF PROCEDURE: The patient was seen in the preoperative area and properly identified. The correct operative eye was identified and marked. The patient received topical anesthetic, antibiotics, and topical dilating drops. The patient was then transferred to the operating room. The correct side was re-identified and a time-out was performed. The eye was prepped and draped in a sterile fashion. The eyelids were isolated with Tegaderm tape and the lids were held open with an adjustable speculum. A 1.0mm paracentesis incision was made. Omidria was then injected into the anterior chamber. Viscoelastic was then injected into the anterior chamber through the paracentesis. Using a 2.4mm sharp-tipped keratome, the anterior chamber was entered via a temporal clear cornea incision. A continuous curvilinear capsulorrhexis was created with Utrata forceps. Hydrodissection was performed with BSS on a blunt cannula until the nucleus was able to rotate freely. The crystalline lens was phacoemulsified and aspirated. Irrigation/aspiration was used to remove the cortical material Cohesive viscoelastic was placed into the capsular bag to deepen it. The implant was placed into the capsular bag and allowed to unfold. Placement was confirmed by visualizing the anterior capsulorrhexis. Irrigation/aspiration was used to remove the viscoelastic. The clear corneal incision was hydrated with BSS on a blunt cannula. The lens was well positioned. Intracameral antibiotic was injected into the anterior chamber. The incisions were then tested for leaks and found to be negative. The eye was then palpated for appropriate pressure and adjusted accordingly with BSS. The eyelid speculum was then carefully removed. A shield was placed over the eye. The patient tolerated the procedure well and was discharge to the recovery unit in a stable condition. KRYSTAL
== END 2020-08-21 11:40 | disposition home or self-care (01) ==
LOC: M SDC 08:25
PROVIDERS: ATTEND Ophthalmology
DX: H25.12 Age-related nuclear cataract, left eye (principal); E78.5 Hyperlipidemia, unspecified; I10 Essential (primary) hypertension; F17.210 Nicotine dependence, cigarettes, uncomplicated; K21.9 Gastro-esophageal reflux disease without esophagitis; N40.0 Benign prostatic hyperplasia without lower urinary tract symptoms; J30.89 Other allergic rhinitis; Z79.82 Long term (current) use of aspirin; Z79.899 Other long term (current) drug therapy; Z96.1 Presence of intraocular lens; Z98.41 Cataract extraction status, right eye
CPT/HCPCS: 66984; J1097; J2250; J3010; V2632

== ENCOUNTER → 2022-07-28 | Outpatient (REF) | payer MEDICARE ==
[~2022-07-28] MED LIST changes: -BSS IRR 500ML/OMIDRIA 4ML IRR BAG (OR ONLY) As Ordered ONE; -CEFUROXIME 1MG/0.1ML INTRACAMERAL INJ As Ordered ONE; -DUOVISC (0.50ML VISCOAT/0.55ML PROVISC) OPHTH KIT As Ordered ONE; -OFLOXACIN 0.3 % (OCUFLOX) OPTH SOL 5ML OS ONE; -PHENYLEPHRINE 2.5% OPHTH SOL 2ML OS ONE; -POVIDONE-IODINE 5% OPHTH PREP SOL 30ML As Ordered ONE; -PROPARACAINE 0.5% OPHTH SOL 15ML OS ONE; -TROPICAMIDE 1% OPHTH SOLN 2ML OS ONE
[2022-07-28 16:06] LABS: BASO # 0.1 10^3/uL (0.0-0.2); BASO % 0.9 % (0.0-1.0); EOS # 0.4 10^3/uL (0.0-0.5); EOS % 3.7 % (0.0-3.0); HEMATOCRIT 47.7 % (42.0-52.0); HEMOGLOBIN 15.8 g/dl (13.5-17.5); LYMPH % 20.6 % (24.0-44.0); MEAN CORPUSCULAR HEMOGLOBIN 32.4 pg (27.0-33.0); MEAN CORPUSCULAR HGB CONC 33.1 g/dl (32.0-36.5); MEAN CORPUSCULAR VOLUME 97.7 fl (80.0-96.0); MONO # 1.1 10^3/uL (0.0-0.8); MONO % 11.5 % (2.0-8.0); NEUTROPHILS # 6.2 10^3/uL (1.5-8.5); NEUTROPHILS % 62.7 % (36.0-66.0); PLATELET COUNT, AUTOMATED 234 10^3/uL (150-450); RED BLOOD COUNT 4.88 10^6/uL (4.30-6.10); WHITE BLOOD COUNT 9.9 10^3/uL (4.0-10.0)
[2022-07-28 16:28] LABS: ALBUMIN 3.8 G/DL (3.2-5.2); ALKALINE PHOSPHATASE 84 U/L (46-116); ALT/SGPT 31 U/L (7.0-40); AST/SGOT 24 U/L (<34); BILIRUBIN,TOTAL 0.3 MG/DL (0.3-1.2); BLOOD UREA NITROGEN 23 MG/DL (9-23); CALCIUM LEVEL 9.2 MG/DL (8.3-10.6); CARBON DIOXIDE LEVEL 26 MMOL/L (20-31); CHLORIDE LEVEL 106 MMOL/L (98-107); CHOLESTEROL LEVEL 201 MG/DL (<200); CREATININE FOR GFR 1.09 MG/DL (0.70-1.30); GLOMERULAR FILTRATION RATE > 60.0 (>42); GLUCOSE, FASTING 107 MG/DL (74-106); HDL CHOLESTEROL 46.7 MG/DL (>40); LDL CHOLESTEROL 104.5 MG/DL (<100); NON-HDL-C 154 MG/DL; POTASSIUM SERUM 4.3 MMOL/L (3.5-5.1); SODIUM LEVEL 139 MMOL/L (136-145); TOTAL PROTEIN 7.4 G/DL (5.7-8.2); TRIGLYCERIDES LEVEL 249 MG/DL (<150)
[2022-07-28 16:32] LABS: FREE T4 0.86 NG/DL (0.89-1.76); THYROID STIMULATING HORMONE 3.027 uIU/ML (0.55-4.78)
[2022-07-28 16:33] LABS: FOLATE 13.2 NG/ML (>5.4)
[2022-07-28 16:34] LABS: VITAMIN B12 LEVEL 182 PG/ML (211-911)
== END ==
LOC: M SFHCADAM 15:00
PROVIDERS: ATTEND Physician Assistant
DX: Z12.5 Encounter for screening for malignant neoplasm of prostate (principal); I10 Essential (primary) hypertension; E78.49 Other hyperlipidemia; D47.2 Monoclonal gammopathy; F17.200 Nicotine dependence, unspecified, uncomplicated; R26.81 Unsteadiness on feet
CPT/HCPCS: 80053; 80061; 82607; 82746; 84439; 84443; 85025; G0103

== ENCOUNTER → 2022-08-04 | Outpatient (REF) | payer MEDICARE | LOC: M SFHCADAM 09:59 | PROVIDERS: ATTEND Physician Assistant | DX: E53.8 Deficiency of other specified B group vitamins (principal) ==

== ENCOUNTER → 2023-02-11 | Outpatient (REF) | payer MEDICARE ==
[2023-02-11 13:16] LABS: THYROID STIMULATING HORMONE 4.988 uIU/ML (0.55-4.78)
[2023-02-11 13:17] LABS: FREE T4 0.93 NG/DL (0.89-1.76)
[2023-02-11 13:21] LABS: FOLATE 12.6 NG/ML (>5.4)
== END ==
LOC: M SFHCADAM 10:48
PROVIDERS: ATTEND Physician Assistant
DX: E53.8 Deficiency of other specified B group vitamins (principal); R97.20 Elevated prostate specific antigen [PSA]

== ENCOUNTER → 2024-03-20 | Outpatient (REF) | payer MEDICARE ==
[2024-03-20 19:43] LABS: HEMATOCRIT 43.6 % (42.0-52.0); HEMOGLOBIN 14.4 g/dl (13.5-17.5); MEAN CORPUSCULAR HEMOGLOBIN 32.2 pg (27.0-33.0); MEAN CORPUSCULAR VOLUME 97.5 fl (80.0-96.0); PLATELET COUNT, AUTOMATED 332 10^3/uL (150-450); RED BLOOD COUNT 4.47 10^6/uL (4.30-6.10); WHITE BLOOD COUNT 11.2 10^3/uL (4.0-10.0)
[2024-03-20 20:07] LABS: PROSTATIC SPECIFIC AG MONITOR 15.18 NG/ML (< 4.00)
[2024-03-20 20:08] LABS: ALBUMIN 3.6 G/DL (3.2-5.2); ALKALINE PHOSPHATASE 98 U/L (46-116); ALT/SGPT 22 U/L (7.0-40); AST/SGOT 15 U/L (<34); BILIRUBIN,TOTAL 0.3 MG/DL (0.3-1.2); BLOOD UREA NITROGEN 23 MG/DL (9-23); CALCIUM LEVEL 9.6 MG/DL (8.3-10.6); CARBON DIOXIDE LEVEL 24 MMOL/L (20-31); CHLORIDE LEVEL 108 MMOL/L (98-107); CHOLESTEROL LEVEL 185 MG/DL (<200); CHOLESTEROL RISK RATIO 3.62 (<5); CREATININE FOR GFR 1.05 MG/DL (0.70-1.30); GLOMERULAR FILTRATION RATE > 60.0 (>35); GLUCOSE, FASTING 76 MG/DL (74-106); POTASSIUM SERUM 4.3 MMOL/L (3.5-5.1); SODIUM LEVEL 139 MMOL/L (136-145); TOTAL PROTEIN 7.9 G/DL (5.7-8.2); TRIGLYCERIDES LEVEL 125 MG/DL (<150)
[2024-03-20 20:11] LABS: TOTAL 25(OH) VITAMIN D 10.3 NG/ML (20.0-100.0); VITAMIN B12 LEVEL 929 PG/ML (211-911)
[2024-03-20 20:12] LABS: FOLATE 15.4 NG/ML (>5.4)
== END ==
LOC: M SFHCADAM 15:18
PROVIDERS: ATTEND Physician Assistant
DX: E53.8 Deficiency of other specified B group vitamins (principal); R97.20 Elevated prostate specific antigen [PSA]; I10 Essential (primary) hypertension; E78.49 Other hyperlipidemia; F17.200 Nicotine dependence, unspecified, uncomplicated; R26.81 Unsteadiness on feet; Z12.5 Encounter for screening for malignant neoplasm of prostate; D75.89 Other specified diseases of blood and blood-forming organs; Z79.899 Other long term (current) drug therapy

== ENCOUNTER → 2024-04-26 | Outpatient (REF) | payer MEDICARE ==
[2024-04-26 18:30] LABS: APPEARANCE, URINE HAZY (CLEAR); BACTERIA, URINE AUTO NEGATIVE (NEGATIVE); BILIRUBIN, URINE AUTO NEGATIVE (NEGATIVE); BLOOD, URINE BLOOD 1+ (NEGATIVE); COLOR, URINE YELLOW (YELLOW); GLUCOSE, URINE (UA) AUTO NEGATIVE (NEGATIVE); KETONE, URINE AUTO TRACE mg/dL (NEGATIVE); LEUKOCYTE ESTERASE, URINE AUTO NEGATIVE (NEGATIVE); MUCUS, URINE SMALL (NEGATIVE); NITRITE, URINE AUTO NEGATIVE (NEGATIVE); PROTEIN, URINE AUTO 2+ mg/dL (NEGATIVE); RBC, URINE AUTO 1 /HPF (0-3); SPECIFIC GRAVITY URINE AUTO 1.019 (1.002-1.035); SQUAMOUS EPITHELIAL CELL UR AU 0 /HPF (0-6); UROBILINOGEN, URINE AUTO 0.2 mg/dL (0.0-2.0); WBC, URINE AUTO 1 /HPF (0-3)
== END ==
LOC: M SMT 17:26
PROVIDERS: ATTEND Nurse Practitioner Family
DX: R97.20 Elevated prostate specific antigen [PSA] (principal); Z79.899 Other long term (current) drug therapy

== ENCOUNTER → 2024-05-18 | Outpatient (REF) | payer MEDICARE | LOC: M SMT 12:50 | PROVIDERS: ATTEND Urology | DX: C61 Malignant neoplasm of prostate (principal); R97.20 Elevated prostate specific antigen [PSA]; F17.210 Nicotine dependence, cigarettes, uncomplicated; Z79.82 Long term (current) use of aspirin; Z79.899 Other long term (current) drug therapy; Z80.42 Family history of malignant neoplasm of prostate; Z88.8 Allergy status to other drugs, medicaments and biological substances ==

== ENCOUNTER → 2024-11-21 | Outpatient (CLI) | payer MEDICARE | LOC: M PLALAB 09:02 | PROVIDERS: ATTEND Urology | DX: C61 Malignant neoplasm of prostate (principal) ==

== ENCOUNTER → 2025-03-26 | Outpatient (REF) | payer MEDICARE ==
[~2025-03-26] MED LIST changes: -PRAV40TA2 PO; +PRAV40TA85 PO
[2025-03-26 18:46] LABS: BASO # 0.1 10^3/uL (0.0-0.2); BASO % 0.8 % (0.0-1.0); EOS # 0.2 10^3/uL (0.0-0.5); EOS % 1.7 % (0.0-3.0); LYMPH # 2.3 10^3/uL (1.5-5.0); LYMPH % 19.0 % (24.0-44.0); MONO # 1.3 10^3/uL (0.0-0.8); MONO % 10.7 % (2.0-8.0); NEUTROPHILS # 8.0 10^3/uL (1.5-8.5); NEUTROPHILS % 67.4 % (36.0-66.0); PLATELET COUNT, AUTOMATED 288 10^3/uL (150-450)
[2025-03-26 19:49] LABS: PSA SCREENING 16.19 NG/ML (< 4.00)
[2025-03-26 19:52] LABS: ALT/SGPT 24.0 U/L (7.0-40); AST/SGOT 21.0 U/L (<34); CALCIUM LEVEL 9.3 MG/DL (8.3-10.6); CARBON DIOXIDE LEVEL 26.0 MMOL/L (20-31); CHLORIDE LEVEL 104.0 MMOL/L (98-107); CHOLESTEROL LEVEL 197.0 MG/DL (<200); CHOLESTEROL RISK RATIO 3.37 (<5); CREATININE FOR GFR 1.07 MG/DL (0.70-1.30); GLOMERULAR FILTRATION RATE 69.7 (>35); LDL CHOLESTEROL 111.4 MG/DL (<100); NON-HDL-C 138.6 MG/DL; POTASSIUM SERUM 4.8 MMOL/L (3.5-5.1); SODIUM LEVEL 136.0 MMOL/L (136-145); TRIGLYCERIDES LEVEL 136.0 MG/DL (<150)
[2025-03-26 19:53] LABS: FREE T4 1.13 NG/DL (0.89-1.76)
== END ==
LOC: M SFHCADAM 15:22
PROVIDERS: ATTEND Physician Assistant
DX: C61 Malignant neoplasm of prostate (principal); I10 Essential (primary) hypertension; E78.49 Other hyperlipidemia; D47.2 Monoclonal gammopathy; Z00.00 Encounter for general adult medical examination without abnormal findings; F17.200 Nicotine dependence, unspecified, uncomplicated; R26.81 Unsteadiness on feet; Z12.5 Encounter for screening for malignant neoplasm of prostate; D75.89 Other specified diseases of blood and blood-forming organs; L30.9 Dermatitis, unspecified; Z23 Encounter for immunization
CPT/HCPCS: 80053; 80061; 84439; 84443; 85025; G0103